=== PATIENT | female | born 1990 | race Caucasian/White ===

== ENCOUNTER → 2022-02-01 10:08 | Outpatient (CLI) | payer OTHER, SELFPAY ==
[2022-02-01 11:22] LABS: HCG,Quantitative 642 mIU/ml (0-5.42)
== END ==
PROVIDERS: Visit Provider Obstetrics & Gynecology
DX: N92.6 Irregular menstruation, unspecified (principal)
CPT/HCPCS: 36415; 84702

== ENCOUNTER → 2022-02-04 08:33 | Outpatient (CLI) | payer OTHER, SELFPAY ==
[2022-02-04 10:09] LABS: HCG,Quantitative 2385 mIU/ml (0-5.42)
== END ==
PROVIDERS: Visit Provider Obstetrics & Gynecology
DX: Z34.90 Encounter for supervision of normal pregnancy, unspecified, unspecified trimester (principal); N92.6 Irregular menstruation, unspecified
CPT/HCPCS: 36415; 84144; 84702

== ENCOUNTER → 2022-02-18 11:57 | Outpatient (CLI) | payer OTHER, SELFPAY ==
[2022-02-18 12:59] LABS: Basophils # 0.1 K/mm3 (0-0.2); Eosinophils # 0.1 K/mm3 (0.0-0.4); Eosinophils % 2.1 % (0.1-12.0); Hematocrit 41.5 % (37.0-47.0); Hemoglobin 13.1 g/dL (12.2-16.2); Lymphocytes % 28.8 % (10-50); Mean Corpuscular HGB Conc 31.5 g/dL (31.8-35.4); Mean Corpuscular Hemoglobin 31.1 pg (27.0-31.2); Mean Corpuscular Volume 98.9 fl (81-99); Mean Platelet Volume 8.4 fl (7.4-10.4); Monocytes # 0.4 K/mm3 (0.1-1.0); Monocytes % 5.7 % (1.7-9.3); Neutrophils # 4.3 K/mm3 (1.8-7.8); Neutrophils % 62.5 % (37.0-80.0); Platelet Count 198 K/mm3 (142-424); White Blood Count 6.8 K/mm3 (4.8-10.8)
[2022-02-19 09:19] LABS: Rubella Antibodies, IgG 7.16 index (Immune >0.99)
[2022-02-19 12:20] LABS: HIV Screen 4th Generation wRfx Non Reactive (Non Reactive); Rapid Plasma Reagin Ab Titer Non Reactive (NonRea<1:1)
[2022-02-19 14:10] LABS: Hepatitis B Surface Antigen Negative (Negative); Hepatitis C Antibody <0.1 s/co ratio (0.0-0.9)
[2022-02-20 23:35] LABS: Neisseria gonorrhoeae, NAA Negative (Negative)
== END ==
PROVIDERS: Visit Provider Obstetrics & Gynecology
DX: Z34.90 Encounter for supervision of normal pregnancy, unspecified, unspecified trimester (principal)
CPT/HCPCS: 36415; 85025; 86592; 86703; 86762; 86850; 87340; 87380; 87491; 87591; G0432

== ENCOUNTER 2022-02-21 07:39 | Emergency (ER) | payer OTHER, SELFPAY ==
[2022-02-21 08:02] VITALS: BP 129/80; PULSE 103; RESP 17; TEMP 36.8; O2SAT 99; BMI 26.8
[2022-02-21 08:21] LABS: Influenza A, PCR Not Detected (NotDetected); Influenza B, PCR Not Detected (NotDetected)
[2022-02-21 08:23] LABS: Microscopic, Urine URINE MICROSCOPIC (MICROSCOPIC)
[2022-02-21 08:25] LABS: Appearance,Urine CLEAR (Clear); Bilirubin,Urine Negative (Negative); Blood, Urine TRACE-I (Negative); Color,Urine YELLOW (Yellow); Glucose,Urine (UA) Negative (Negative); Ketones,Urine Negative (Negative); Leukocyte Esterase,Urine Negative (Negative); Nitrate,Urine Negative (Negative); PH,Urine 6.5 (5.0-8.5); Protein,Urine Negative (Negative); Urobilinogen,Urine 0.2 EU/dl (0.2)
[2022-02-21 08:28] VITALS: BP 119/67; PULSE 93; O2SAT 100
[2022-02-21 08:29] LABS: Urine Pregnancy, HCG Qual. Positive (Negative)
--- NOTE | 2022-02-21 08:29 | PC.NURSE ---
pt is lying on ED stretcher waiting to have an IV started and blood collected. She asked for a warm blanket, call light within reach.
[2022-02-21 08:30] VITALS: BP 139/83; PULSE 98; O2SAT 100
[2022-02-21 08:36] LABS: Bacteria,Urine Trace /lpf; Squamous Epithelial Cell,Urine Occasional #/hpf (0-5)
--- NOTE | 2022-02-21 08:39 | HMH.EDGENADL ---
Discharge Plan Disposition Patient Disposition: Home, Self-Care Condition: Good Chief Complaint: Vaginal Bleeding Prescriptions Prescriptions: No Action Flintstones Complete Tablet,Chewable 1 tab PO DAILY albuterol sulfate 90 mcg/actuation HFA aerosol inhaler 2 puff IH Q6H PRN Referrals Referrals: Provider,Referral, [Primary Care Provider] - Enter time for follow up Activity Restrictions/Add. Instructions Additional Instructions/Restrictions: You were evaluated in the emergency department today and diagnosed with COVID-19. You also having vaginal bleeding affecting early . We encourage oral hydration, pelvic rest, and Tylenol as needed for symptoms. Follow-up with your primary care provider. Return to the emergency department for any new or worsening symptoms. Clinical Impressions Clinical Impression: Vaginal bleeding affecting early , COVID-19 affecting in first trimester Instructions Patient Instructions: DI for Vaginal Bleeding During , DI for Vaginal Bleeding, DI for COVID-19 (Suspected or Confirmed ) Discharge ED Provider: Khadra Rizvi General Adult HPI General Chief complaint: Vaginal Bleeding Stated complaint: possible miscarrage,bleeding Time Seen by Provider: 02/21/22 08:00 Mode of Arrival: Ambulatory Source of Information: Patient Limitations: No Limitations Description of Symptoms (Recalled from ER Triage Doc. by RN): pt to ed c/o vaginal bleeding. pt states she is approx 8 weeks . pt states around midnight she started having pink tinged spotting and at 4 am she reports having bright red blood and passing a clot. pt states she has intermittenly been bleeding this morning. pt reports having a covid exposure x1 week ago and reports generalized body aches this morning. History of Present Illness HPI narrative: This patient is a 31-year-old female at estimated 8 weeks gestation with confirmed intrauterine via transvaginal ultrasound presented to the emergency department for evaluation of fever, body aches, sore throat, cough, and congestion that started yesterday. Patient states that she also had light spotting on the toilet paper last night and has continued to have light spotting this morning. She states that she wants a COVID test and is concerned that she may be having a miscarriage. She denies any chest pain, abdominal pain, vomiting, changes in bowel movements, dysuria, rashes, or swelling. She took Tylenol last night which seemed out of her symptoms, but she has not taken anything today. Related Data Home Medications Medication Instructions Recorded Confirmed albuterol sulfate 90 mcg/actuation 2 puff inhalation Q6H PRN 01/16/22 01/16/22 aerosol inhaler pediatric multivitamin no.76 1 tab PO DAILY 02/18/22 02/18/22 (Flintstones Complete) Allergies Allergy/AdvReac Type Severity Reaction Status Date / Time Latex, Natural Rubber Allergy Mild Verified 02/18/22 11:23 Opioids - Morphine Analogues Allergy Mild Verified 02/18/22 11:23 tramadol Allergy Mild Verified 02/18/22 11:23 PFSH PFSH Social History Smoking Status: Never smoker alcohol intake: never current occupational status: employed ROS Obtained: Yes All systems reviewed & no additional complaints except as documented 14 point review systems negative except otherwise mentioned in HPI Physical Exam General General appearance: alert and in no apparent distress Respiratory Respiratory exam: Present normal lung sounds bilaterally; Absent respiratory distress Cardiovascular Cardiovascular exam: Present regular rate and normal rhythm; Absent bradycardia or tachycardia Neurological Exam Neurological exam: Present alert and oriented X3 Medical Decision Making Sammy Inquiry Pt receiving controlled substance: No Vital Signs: 02/21/22 08:02 02/21/22 08:28 02/21/22 08:30 Temperature 98.2 F
--- NOTE | 2022-02-21 08:42 | US_ITS ---
FINAL REPORT CLINICAL HISTORY: vaginal bleeding-- early ob-- covid pos FINDINGS: Sonographic images of the pelvis were obtained. A single, living intrauterine is noted. The uterus is anteverted and anteflexed. A yolk sac is present and measures 5 mm which is normal. A pole is present. [place] to rump length measures 11.3 mm cm which corresponds to 7 weeks 2 days gestation. Heartbeat is identified and measures 163 beats per minute. There is a normal decidual reaction crescentic hypo echogenicity adjacent to the gestational sac. This is likely a small sub chorionic hemorrhage. The left ovary measures 2.6 x 3.6 by 2.1 cm and is normal. Color imaging to the left ovary is normal. The right ovary measures 3.3 x 1.9 x 2.1 cm and is normal. Color imaging to the right ovary is normal. IMPRESSION: Single, living, intrauterine gestation with 7 weeks 2 days ultrasound age. Reviewed, Interpreted and Dictated by Valentina Blount MD Transcribed by Luisa Morataya Authenticated and [facility]
--- NOTE | 2022-02-21 08:49 | PC.NURSE ---
pt to US with teradata developer via WC
--- NOTE | 2022-02-21 08:50 | PC.NURSE ---
per lab staff reports approx 5 minutes left until covid swab results
[2022-02-21 08:52] LABS: Coronavirus 19, PCR Detected (NotDetected)
--- NOTE | 2022-02-21 08:54 | PC.NURSE ---
Addendum entered by Mary Dang 02/21/22 08:57: pt is still in US at this time Original Note: pt returned from US via wheelchair
--- NOTE | 2022-02-21 09:02 | PC.NURSE ---
pt placed in a gown and OB bet set up at this time
[2022-02-21 09:13] LABS: Basophils # 0.1 K/mm3 (0-0.2); Basophils % 2.1 % (0.1-2.0); Eosinophils % 0.5 % (0.1-12.0); Hematocrit 39.1 % (37.0-47.0); Hemoglobin 12.9 g/dL (12.2-16.2); Lymphocytes # 0.3 K/mm3 (0.7-4.5); Mean Corpuscular HGB Conc 32.9 g/dL (31.8-35.4); Mean Corpuscular Hemoglobin 31.4 pg (27.0-31.2); Mean Corpuscular Volume 95.7 fl (81-99); Mean Platelet Volume 8.5 fl (7.4-10.4); Monocytes # 0.3 K/mm3 (0.1-1.0); Monocytes % 9.3 % (1.7-9.3); Neutrophils # 2.4 K/mm3 (1.8-7.8); Platelet Count 134 K/mm3 (142-424); Red Blood Count 4.09 M/mm3 (4.20-5.40); Red Cell Distribution Width 13.1 % (11.5-17.5)
[2022-02-21 09:18] LABS: Alanine Aminotransferase 25 U/L (12-78); Albumin/Globulin Ratio 1.5 (1.1-1.8); Alkaline Phosphatase 51 U/L (38-126); Anion Gap 10.5 mEq/L (5-15); Aspartate Amino Transferase 33 U/L (14-36); Blood Urea Nitrogen 9 mg/dl (7-17); Calcium 8.6 mg/dl (8.4-10.2); Carbon Dioxide 26 mmol/L (22.0-30.0); Chloride 100 mmol/L (98-107); Creatinine Clearance Estimated 137 mL/min (50-200); Estimated Glomerular Filt Rate 116 ml/min (>60); GFR (African American) 140 ML/MIN (>60); Globulin 2.7 g/dL (1.3-3.2); Glucose 78 mg/dl (74-100); Potassium 3.5 mmoL/L (3.5-5.1); Sodium 133 mmol/L (136-145); Total Protein,Serum 6.7 g/dl (6.3-8.2)
[2022-02-21 09:19] LABS: Bilirubin,Total < 0.1 mg/dl (0.2-1.3)
[2022-02-21 09:34] VITALS: BP 138/80; PULSE 94; RESP 17; TEMP 36.8; O2SAT 99
[2022-02-21 10:01] LABS: HCG,Quantitative 64297 mIU/ml (0-5.42)
== END 2022-02-21 09:47 | disposition home or self-care (01) ==
PROVIDERS: Emergency Provider Emergency Medicine
DX: O46.91 Antepartum hemorrhage, unspecified, first trimester; Z3A.08 8 weeks gestation of pregnancy; Z88.5 Allergy status to narcotic agent; Z88.6 Allergy status to analgesic agent; Z91.040 Latex allergy status; J45.909 Unspecified asthma, uncomplicated; F31.9 Bipolar disorder, unspecified
CPT/HCPCS: 76817; 80053; 81001; 81025; 84702; 85025; 86850; 96365; 99284; C9803; U0003; U0005

== ENCOUNTER → 2022-02-28 15:33 | Outpatient (CLI) | payer OTHER, SELFPAY ==
--- NOTE | 2022-02-28 15:36 | US_ITS ---
FINAL REPORT CLINICAL HISTORY: Recheck Heartbeat FINDINGS: Transvaginal sonographic images of the pelvis were obtained. A single intrauterine is noted with a gestational age of 7 weeks 6 days based on crown rump length of 15 mm. No heartbeat is identified consistent with demise. The right ovary measures up to 3.5 cm. The left ovary measures up to 3.8 cm. There is a small amount of free fluid. IMPRESSION: Findings consistent with demise. Reviewed, Interpreted and Dictated by Avel Jaimes III, MD Transcribed by Keo Maldonado Authenticated and . [facility]
== END ==
PROVIDERS: Visit Provider Obstetrics & Gynecology
DX: Z36.2 Encounter for other antenatal screening follow-up (principal); Z3A.08 8 weeks gestation of pregnancy
CPT/HCPCS: 76817

== ENCOUNTER → 2022-03-05 11:56 | Outpatient (CLI) | payer OTHER, SELFPAY ==
[2022-03-05 12:10] LABS: MANUAL DIFFERENTIAL MANUAL DIFFERENTIAL (MANUAL DIFF)
[2022-03-05 12:31] LABS: Basophils # 0.1 K/mm3 (0-0.2); Basophils % 0.9 % (0.1-2.0); Eosinophils # 0.1 K/mm3 (0.0-0.4); Eosinophils % 1.3 % (0.1-12.0); Hematocrit 39.2 % (37.0-47.0); Hemoglobin 12.8 g/dL (12.2-16.2); Lymphocytes # 1.8 K/mm3 (0.7-4.5); Lymphocytes % 26.6 % (10-50); Mean Corpuscular HGB Conc 32.6 g/dL (31.8-35.4); Mean Platelet Volume 8.1 fl (7.4-10.4); Monocytes # 0.4 K/mm3 (0.1-1.0); Monocytes % 6.2 % (1.7-9.3); Neutrophils # 4.4 K/mm3 (1.8-7.8); Platelet Count 243 K/mm3 (142-424); Red Blood Count 4.13 M/mm3 (4.20-5.40); Red Cell Distribution Width 12.9 % (11.5-17.5); White Blood Count 6.7 K/mm3 (4.8-10.8)
[2022-03-05 19:39] LABS: Lymphocytes % 32 % (10-50); Monocytes % 5 % (2-9); Neutrophils % 63 % (42-76); Platelet Estimate Normal; RBC Morphology Normal; Total Cells Counted 100
== END ==
PROVIDERS: Visit Provider Obstetrics & Gynecology
DX: O02.1 Missed abortion (principal)
CPT/HCPCS: 36415; 84702; 85007; 85014; 85018; 85048; 85049

== ENCOUNTER → 2022-03-12 11:00 | Outpatient (CLI) | payer OTHER, SELFPAY ==
[2022-03-12 14:00] LABS: HCG,Quantitative 30377 mIU/ml (0-5.42)
== END ==
PROVIDERS: Visit Provider Obstetrics & Gynecology
DX: O02.1 Missed abortion (principal)
CPT/HCPCS: 36415; 84702

== ENCOUNTER → 2022-03-14 18:37 | Outpatient (CLI) | payer OTHER, SELFPAY ==
[2022-03-14 19:02] LABS: Basophils # 0.1 K/mm3 (0-0.2); Basophils % 0.7 % (0.1-2.0); Eosinophils # 0.2 K/mm3 (0.0-0.4); Eosinophils % 2.1 % (0.1-12.0); Hematocrit 36.8 % (37.0-47.0); Hemoglobin 12.7 g/dL (12.2-16.2); Lymphocytes # 1.8 K/mm3 (0.7-4.5); Lymphocytes % 26.7 % (10-50); Mean Corpuscular HGB Conc 34.5 g/dL (31.8-35.4); Mean Corpuscular Hemoglobin 32.2 pg (27.0-31.2); Mean Corpuscular Volume 93.4 fl (81-99); Mean Platelet Volume 9.4 fl (7.4-10.4); Monocytes # 0.5 K/mm3 (0.1-1.0); Monocytes % 6.9 % (1.7-9.3); Neutrophils # 4.4 K/mm3 (1.8-7.8); Neutrophils % 63.5 % (37.0-80.0); Platelet Count 206 K/mm3 (142-424); Red Blood Count 3.94 M/mm3 (4.20-5.40); Red Cell Distribution Width 13.4 % (11.5-17.5); White Blood Count 6.9 K/mm3 (4.8-10.8)
[2022-03-14 19:20] LABS: Alanine Aminotransferase 15 U/L (12-78); Albumin/Globulin Ratio 1.5 (1.1-1.8); Alkaline Phosphatase 67 U/L (38-126); Anion Gap 12.6 mEq/L (5-15); Aspartate Amino Transferase 24 U/L (14-36); Bilirubin,Total < 0.1 mg/dl (0.2-1.3); Blood Urea Nitrogen 13 mg/dl (7-17); Calcium 8.3 mg/dl (8.4-10.2); Carbon Dioxide 27 mmol/L (22.0-30.0); Chloride 102 mmol/L (98-107); Estimated Glomerular Filt Rate 116 ml/min (>60); GFR (African American) 140 ML/MIN (>60); Globulin 2.7 g/dL (1.3-3.2); Glucose 103 mg/dl (74-100); Potassium 3.6 mmoL/L (3.5-5.1); Sodium 138 mmol/L (136-145); Total Protein,Serum 6.7 g/dl (6.3-8.2)
== END ==
PROVIDERS: Visit Provider Obstetrics & Gynecology
DX: O02.1 Missed abortion (principal); Z01.812 Encounter for preprocedural laboratory examination
CPT/HCPCS: 36415; 80053; 85025

== ENCOUNTER 2022-03-15 06:09 | Day surgery (SDC) | payer OTHER, SELFPAY ==
[2022-03-13 12:31] VITALS: BMI 26.5
[2022-03-15] VITALS (10 sets, daily range): BP systolic 108–140; BP diastolic 52–86; PULSE 71–102; RESP 16–24; TEMP 36.3–37.1; O2SAT 96–100
--- NOTE | 2022-03-15 07:42 | EXP.ANES.CKL ---
[facility] Medical History Asthma Bipolar 1 disorder History of recurrent miscarriages Missed Surgical History H/O tooth extraction History of D&C Family History (Updated 03/15/22 @ 06:37 by Harmony Mi, RN) Family/Other Hyperthyroidism Sister Hypothyroid Graves disease Mother Hypothyroid Mother Diabetes Son Family history of cancer Grandmother Family history of cancer Murmur, heart Social History (Updated 03/15/22 @ 06:40 by Harmony Mi, RN) Smoking Status: Current some day smoker tobacco type: cigarettes packs per day: 1 years smoked: 18 second hand exposure: No alcohol intake: never substance use type: marijuana current occupational status: unemployed Travel in the last 8 weeks: None [facility] Anesthesia Checklist Patient Identification Patient Identification: Arm Band Structural Data Admitted From: Home Planned Operative Procedure/s: D&C with [place] Suction Consent for Planned Operative Procedure(s) Verified: Yes Verified Documents: Surgical Consent and History and Physical NPO Status Verified Time NPO: 00:00 Additional verifications Anesthesia Reactions: No Hx Blood Transfusions: No Blood Transfusion Reaction: No Airway Assessment C-Spine Mobility Assessed: Yes TMJ Mobility Assessed: Yes Dentition: Good Dentition Neurological Assessment Level of Consciousness: Awake and Alert Anesthesia Plan Anesthesia Risk discussed: Yes Anesthesia Plan: Verified ASA Class: II Anesthesia Type: General
--- NOTE | 2022-03-15 08:22 | P.PNANES_ITS ---
[facility] Anesthesia Record Part I Anesthesia Record I Intake, IV Amount: 1,200 Estimated blood loss (mL): 300 Urine output (mL): 50 Blood Products used (#): none Blood Pressure: 110/67 SaO2: 96 Pulse Rate: 102 Respiratory Rate: 16 Temperature: 97.7 F Patient is:: Drowsy and Stable Stable to PACU at:: 08:15
--- NOTE | 2022-03-15 09:13 | PC.NURSE ---
0843-detailed report called to ADE Scales 0845-pt transported to post op via stretcher w/shaun rails up and left in care of ADE Scales with bed locked in lowest position ,vss, pt stable, pt's sister remains at bedside
--- NOTE | 2022-03-15 09:52 | EXP.ANES.II ---
[facility] Anesthesia Record Part II Anesthesia Record Part II Discharge Time: 08:45 Destination: Surgical Day Care (OP Surgery) PACU nurse assessment reviewed?: Yes Patient Condition:: Good Anesthesia Complications:: None Swallowing reflex intact?: Yes Cyanosis?: No Blood Pressure: 108/77 Pulse Rate: 80 Temperature: 97.4 F Mental Status: Alert & Oriented Pain level:: 0 Nausea and/or vomitting:: None Intake, IV Amount: 0
--- NOTE | 2022-03-26 10:49 | EXP.OP.NOTE ---
Date of procedure: 03/15/22 Pre-op Diagnosis:: 1. Missed 2. History of recurrent miscarriage 3. ABO RH: O positive Post-op Diagnosis:: 1. Missed 2. History of recurrent miscarriage 3. ABO RH: O positive Procedure performed:: 1. Missed 2. History of recurrent miscarriage 3. ABO RH: O positive Surgeon:: Mary Carmen Fowler DO Fieldwork Coordinator(s):: N/a FLOOR TILING PROFESSIONAL:: Nikunj Foster Anesthesia: GETA Estimated blood loss (mL): 300 Clinical Note:: Ms Loraine Mock is a 31 yo who presents with missed . She was see on 02/28 for routine ob visit at 8w4d and no heartbeat was seen on exam. She was sent to [facility] for follow-up ultrasound that confirmed miscarriage. She proceed with expectant management from 02/28/-03/04. She had some spotting and mild cramping but nothing else. She wanted to try medical management. She was given Cytotec. Beta hcg quant decreased from 75,596 to 30,377. She states she continues to have cramping but no bleeding. She would like to proceed with surgical intervention. Operative findings:: On bimanual exam, uterus anteverted and approximately 10 week size. No adnexal masses palpated. Operative note:: Risks, benefits and alternatives were discussed with the patient. Risks include but are not limited to bleeding, infection, uterine perforation and VTE. Patient voiced understanding and agreed to proceed. She was wheeled back to the operating room and placed under general anesthesia without difficulty. She was placed in dorsal lithotomy position and prepped and draped in the normal sterile fashion. Straight catheter was used to drain the bladder. A bimanual exam was performed. A weighted Auvard was placed in the vaginal vault. Single tooth tenaculum was placed on anterior lip of the cervix. Uterus sounded to 12. Sequential Kapil dilators were used to dilate the cervical os. An 8 mm curved frisian suction curettage was advanced into the uterine cavity without difficulty and was used to suction contents of the uterus. Following removal of the products of conception, a medium sized sharp curette was advanced into the uterine cavity and was used to scrape the uterine solis until a gritty texture was noted. At this time, the suction curette was advanced one more time to suction any remaining products of conception and blood. Instruments were removed from the vagina. Tenaculum site was noted to be hemostatic. Patient was awaken from anesthesia without difficulty. Products of conception will be sent to pathology as well as to an outside lab for chromosomal analysis. She was transported to recovery room in stable condition. Patient will be discharged home when awake and ambulating. She was given a prescription for Doxycycline 200 mg PO x 1 dose and postop instructions. She was also given instructions to follow-up in the office in 2 weeks. Condition: stable Disposition: same day Specimens:: 1. Products of conception Complications:: None
== END 2022-03-15 09:20 | disposition home or self-care (01) ==
PROVIDERS: Visit Provider Obstetrics & Gynecology
PROC: (CPT 59820; principal; 2022-03-15 07:30)
DX: O02.1 Missed abortion (principal); N96 Recurrent pregnancy loss; Z67.40 Type O blood, Rh positive; Z3A.10 10 weeks gestation of pregnancy; Z72.0 Tobacco use
CPT/HCPCS: 59820; J2405

== ENCOUNTER 2022-03-24 22:51 | Emergency (ER) | payer OTHER, SELFPAY ==
[2022-03-24 22:52] VITALS: BP 119/69; PULSE 83; RESP 16; TEMP 36.9; O2SAT 100; BMI 25.6
--- NOTE | 2022-03-24 23:12 | XR_ITS ---
PROCEDURE INFORMATION: Exam: XR Right Foot Exam date and time: 03/24/2022 11:09 PM Age: 31 years old Clinical indication: Pain; Foot; Right; Additional info: Pain without explanation TECHNIQUE: Imaging protocol: Radiologic exam of the Right foot. Views: 3 or more views. COMPARISON: No relevant prior studies available. FINDINGS: Bones/joints: No acute fracture. 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 No dislocation. Soft tissues: Unremarkable. IMPRESSION: No fracture. If pain persists, consider nonemergent MRI for further evaluation.
--- NOTE | 2022-03-24 23:40 | PC.NURSE ---
updated on pt's triage, radiology pending
[2022-03-25] VITALS: BP 103/59; PULSE 85; O2SAT 98
--- NOTE | 2022-03-25 | PC.NURSE ---
Addendum entered by Marilu Peraza RN 03/25/22 00:47: Note entered on the wrong patient. Original Note: Rounded on patient. Patient is still c/o of bladder spasms that are severe in nature.
--- NOTE | 2022-03-25 00:13 | HMH.EDEXTP ---
Discharge Plan Disposition Patient Disposition: Home, Self-Care Chief Complaint: Extremity Problem,Nontraumatic Prescriptions Prescriptions: No Action No Known Home Medications Referrals Follow up/Referrals: Provider,Referral, MD [Primary Care Provider] - See instructions Clinical Impressions Clinical Impression: Foot pain, right Instructions Patient Instructions: DI for Foot Pain Discharge ED Provider: Francisco Del Rio Extremity Problem HPI General Chief complaint: Extremity Problem,Nontraumatic Stated complaint: surg. 03/18 swelling Time Seen by Provider: 03/25/22 00:15 Mode of Arrival: Ambulatory Source of Information: Patient Limitations: No Limitations Description of Symptoms (Recalled from ER Triage Doc. by RN): PT WITH CONTUSION ON TOP OF RIGHT FOOT. PT STATES SHE HAD A D&C 9 DAYS AGO AND WOULD LIKE TO MAKE SURE IT IS NOT A BLOOD CLOT. PT DENIES INJURY BUT STATES SHE WAS SITTIG ON HER FEET ON A HARDWOOD FLOOR. ALL PULSES PRESENT. History of Present Illness HPI Narrative: acute pain to dorsum of rt foot after sitting on foot tonight but had recent surg MD Complaint: extremity pain Onset (ago): hour(s) Location: right and lower extremity Exacerbating factors: palpation Context: recent surgery/procedure Related Data Home Medications Medication Instructions Recorded Confirmed No Known Home Medications 03/24/22 03/24/22 Allergies Allergy/AdvReac Type Severity Reaction Status Date / Time Latex, Natural Rubber Allergy Mild Verified 03/15/22 06:29 tramadol Allergy Mild Vomiting Verified 03/15/22 06:29 amoxicillin Allergy Diarrhea Verified 03/15/22 06:30 bacitracin Allergy RASH/REDNES Verified 03/15/22 06:29 [From Triple Antibiotic] S morphine Allergy respiratory Verified 03/15/22 06:29 distress neomycin Allergy RASH/REDNES Verified 03/15/22 06:29 [From Triple Antibiotic] S polymyxin B Allergy RASH/REDNES Verified 03/15/22 06:29 [From Triple Antibiotic] S PFSH PFSH Medical History Asthma Bipolar 1 disorder History of recurrent miscarriages Missed Surgical History H/O tooth extraction History of D&C Family History (Updated 03/15/22 @ 06:37 by Harmony Mi RN) Graves disease Sister Diabetes Mother Family history of cancer Son Grandmother Murmur, heart Grandmother Hyperthyroidism Family/Other Hypothyroid Sister Mother Social History (Updated 03/15/22 @ 07:43 by Nikunj Foster CRNA) Smoking Status: Never smoker years smoked: 18 second hand exposure: No alcohol intake: never substance use type: marijuana current occupational status: unemployed Travel in the last 8 weeks: None ROS Obtained: Yes All systems reviewed & no additional complaints except as documented Physical Exam General General appearance: alert Head Head exam: normocephalic Eye Eye exam: Present PERRL and EOMI ENT ENT exam: Present mucous membranes moist Neck Neck exam: Present trachea midline Respiratory Respiratory exam: Absent respiratory distress Cardiovascular Cardiovascular exam: Present regular rate Expanded Lower Extremity Exam Right: Foot/toe exam: Present tenderness and swelling; Absent full ROM Neurovascular/Tendon exam: Absent pulse deficit Neurological Exam Neurological exam: Present alert and CN II-XII intact Skin Skin exam: Present intact Medical Decision Making Medical Records Medical records reviewed: Yes I reviewed the patient's medical records. Sammy Inquiry Pt receiving controlled substance: No Vital Signs: 03/24/22 22:52 03/25/22 00:00 Temperature 98.5 F Temperature Source Oral Pulse Rate 85 Pulse Rate [Left Radial] 83 Respiratory Rate 16 Blood Pressure 103/59 L Blood Pressure [Right Arm] 119/69 Blood Pressure Mean 75 Blood Pressure Mean [Right Ar
--- NOTE | 2022-03-25 00:30 | PC.NURSE ---
PT UPDATED. PT AWARE THAT HER RADIOLOGY REPORTS ARE BACK. WAITING ON MD TO REVIEW FOR DECISION. NO COMPLAINTS VOICED. NO ACUTE DISTRESS NOTED.
[2022-03-25 00:44] VITALS: BP 107/65; PULSE 75; RESP 17; TEMP 36.6; O2SAT 99
--- NOTE | 2022-03-25 00:46 | PC.NURSE ---
OUTPATIENT ORDER FOR VENOUS DOPPLER GIVEN TO PATIENT.
--- NOTE | 2022-03-25 00:49 | PC.NURSE ---
Respiratory notified of order form for outpatient order venous doppler. Patient advised that she will be called tomorrow with instructions on coming to the hospital for those tests. Verbalized understanding. Patient gave phone number of [phone]
== END 2022-03-25 01:00 | disposition home or self-care (01) ==
PROVIDERS: Emergency Provider Emergency Medicine
DX: M79.671 Pain in right foot (principal); R00.2 Palpitations; Z88.5 Allergy status to narcotic agent; Z88.6 Allergy status to analgesic agent; Z88.1 Allergy status to other antibiotic agents; Z91.040 Latex allergy status; J45.909 Unspecified asthma, uncomplicated; F31.9 Bipolar disorder, unspecified
CPT/HCPCS: 73630; 99283

== ENCOUNTER → 2022-03-25 10:24 | Outpatient (CLI) | payer OTHER, SELFPAY ==
--- NOTE | 2022-03-25 | CA_ITS ---
FINAL REPORT TECHNIQUE: Compression mo scale and Doppler evaluation CLINICAL HISTORY: .s/p (wk miscarridge post DNC-<1 week ago, bruised rt foot FINDINGS: Femoral and popliteal veins show normal compressibility and flow. Visualized portion of the calf veins are patent by Doppler exam. IMPRESSION: No evidence of right lower extremity deep venous thrombosis Reviewed, Interpreted and Dictated by Guadalupe Kaye MD Transcribed by Luisa Morataya Authenticated and . [facility]
== END ==
PROVIDERS: Visit Provider Emergency Medicine
DX: M79.671 Pain in right foot (principal); M79.89 Other specified soft tissue disorders
CPT/HCPCS: 93971

== ENCOUNTER → 2022-04-10 11:54 | Outpatient (CLI) | payer OTHER, SELFPAY ==
[2022-04-10 12:28] LABS: Basophils # 0.1 K/mm3 (0-0.2); Basophils % 0.4 % (0.1-2.0); Eosinophils # 0.2 K/mm3 (0.0-0.4); Eosinophils % 2.2 % (0.1-12.0); Hemoglobin 12.6 g/dL (12.2-16.2); Lymphocytes # 2.2 K/mm3 (0.7-4.5); Lymphocytes % 21.2 % (10-50); Mean Corpuscular HGB Conc 30.9 g/dL (31.8-35.4); Mean Corpuscular Hemoglobin 29.9 pg (27.0-31.2); Mean Corpuscular Volume 96.8 fl (81-99); Mean Platelet Volume 7.5 fl (7.4-10.4); Monocytes # 0.5 K/mm3 (0.1-1.0); Neutrophils # 7.2 K/mm3 (1.8-7.8); Neutrophils % 71.2 % (37.0-80.0); Platelet Count 195 K/mm3 (142-424); Red Blood Count 4.23 M/mm3 (4.20-5.40); Red Cell Distribution Width 13.3 % (11.5-17.5); White Blood Count 10.2 K/mm3 (4.8-10.8)
[2022-04-10 13:04] LABS: Hemoglobin A1C 4.8 % (4.0-6.0)
[2022-04-10 13:11] LABS: Alanine Aminotransferase 26 U/L (12-78); Albumin Level 3.9 g/dl (3.5-5.0); Albumin/Globulin Ratio 1.6 (1.1-1.8); Alkaline Phosphatase 66 U/L (38-126); Anion Gap 13.2 mEq/L (5-15); Aspartate Amino Transferase 33 U/L (14-36); Bilirubin,Total 0.2 mg/dl (0.2-1.3); Blood Urea Nitrogen 14 mg/dl (7-17); Calcium 8.7 mg/dl (8.4-10.2); Carbon Dioxide 24 mmol/L (22.0-30.0); Chloride 104 mmol/L (98-107); Estimated Glomerular Filt Rate 116 ml/min (>60); GFR (African American) 140 ML/MIN (>60); Globulin 2.5 g/dL (1.3-3.2); Glucose 107 mg/dl (74-100); Potassium 4.2 mmoL/L (3.5-5.1); Sodium 137 mmol/L (136-145); Total Protein,Serum 6.4 g/dl (6.3-8.2)
[2022-04-10 13:28] LABS: T4 (Thyroxine) 5.5 ug/dl (5.53-11.0)
[2022-04-10 13:29] LABS: HCG,Quantitative 4 mIU/ml (0-5.42)
[2022-04-10 13:42] LABS: Thyroid Stimulating Hormone 0.94 uIU/mL (0.465-4.68)
[2022-04-11 08:15] LABS: Progesterone 10.1 ng/mL (.)
== END ==
PROVIDERS: PCP Nurse Practitioner Family; Visit Provider Obstetrics & Gynecology
DX: N92.6 Irregular menstruation, unspecified (principal)
CPT/HCPCS: 36415; 80053; 83036; 84144; 84436; 84443; 84702; 85025

== ENCOUNTER → 2022-04-12 08:49 | Outpatient (CLI) | payer OTHER, SELFPAY ==
[2022-04-12 10:07] LABS: Chol/HDL Ratio 3.2 (1-3.5); Cholesterol 205 mg/dl (140-200); HDL Cholesterol 65 mg/dl (40-60); Triglycerides 82 mg/dl (30-150); VLDL Cholesterol 16 mg/dL (0-40)
[2022-04-12 10:19] LABS: Direct LDL Cholesterol 106.65 mg/dL (100-129)
[2022-04-12 10:23] LABS: HCG,Quantitative 3 mIU/ml (0-5.42)
== END ==
PROVIDERS: Obstetrics & Gynecology; PCP Nurse Practitioner Family; Visit Provider Nurse Practitioner Family
DX: N92.6 Irregular menstruation, unspecified (principal)
CPT/HCPCS: 36415; 80061; 84702

== ENCOUNTER → 2022-04-19 08:05 | Outpatient (CLI) | payer OTHER, SELFPAY ==
[2022-04-19 10:57] LABS: HCG,Quantitative 3 mIU/ml (0-5.42)
== END ==
PROVIDERS: PCP Emergency Medicine; Visit Provider Obstetrics & Gynecology
DX: O02.1 Missed abortion (principal)
CPT/HCPCS: 36415; 84702

== ENCOUNTER → 2022-05-03 15:00 | Outpatient (CLI) | payer OTHER, SELFPAY ==
[2022-05-03 16:21] LABS: HCG,Quantitative 1029 mIU/ml (0-5.42)
== END ==
PROVIDERS: PCP Emergency Medicine; Visit Provider Obstetrics & Gynecology
DX: N92.6 Irregular menstruation, unspecified (principal)
CPT/HCPCS: 36415; 84702

== ENCOUNTER → 2022-05-06 14:56 | Outpatient (CLI) | payer OTHER, SELFPAY ==
[2022-05-06 17:54] LABS: HCG,Quantitative 1511 mIU/ml (0-5.42)
[2022-05-08 10:00] LABS: Progesterone 5.2 ng/mL (.)
== END ==
PROVIDERS: PCP Emergency Medicine; Visit Provider Obstetrics & Gynecology
DX: N92.6 Irregular menstruation, unspecified (principal)
CPT/HCPCS: 36415; 84144; 84702

== ENCOUNTER → 2022-05-08 11:43 | Outpatient (CLI) | payer OTHER, SELFPAY ==
[2022-05-08 12:14] LABS: Basophils # 0.1 K/mm3 (0-0.2); Basophils % 1.5 % (0.1-2.0); Eosinophils # 0.3 K/mm3 (0.0-0.4); Eosinophils % 3.3 % (0.1-12.0); Hematocrit 44.2 % (37.0-47.0); Lymphocytes # 2.1 K/mm3 (0.7-4.5); Lymphocytes % 22.9 % (10-50); Mean Corpuscular HGB Conc 31.6 g/dL (31.8-35.4); Mean Corpuscular Hemoglobin 30.9 pg (27.0-31.2); Mean Corpuscular Volume 97.7 fl (81-99); Mean Platelet Volume 7.9 fl (7.4-10.4); Monocytes # 0.5 K/mm3 (0.1-1.0); Monocytes % 5.7 % (1.7-9.3); Neutrophils # 6.1 K/mm3 (1.8-7.8); Neutrophils % 66.6 % (37.0-80.0); Platelet Count 206 K/mm3 (142-424); Red Blood Count 4.52 M/mm3 (4.20-5.40); Red Cell Distribution Width 13.7 % (11.5-17.5); White Blood Count 9.2 K/mm3 (4.8-10.8)
[2022-05-08 14:02] LABS: HCG,Quantitative 1431 mIU/ml (0-5.42)
== END ==
PROVIDERS: PCP Emergency Medicine; Visit Provider Obstetrics & Gynecology
DX: Z34.90 Encounter for supervision of normal pregnancy, unspecified, unspecified trimester (principal); O20.9 Hemorrhage in early pregnancy, unspecified
CPT/HCPCS: 36415; 84702; 85025

== ENCOUNTER 2022-05-09 19:15 | Emergency (ER) | payer OTHER, SELFPAY ==
[2022-05-09 19:29] VITALS: BP 142/96; PULSE 109; RESP 17; TEMP 37.6; O2SAT 99; BMI 27.4
[2022-05-09 19:42] LABS: Basophils # 0.1 K/mm3 (0-0.2); Basophils % 1.1 % (0.1-2.0); Eosinophils # 0.2 K/mm3 (0.0-0.4); Eosinophils % 2.4 % (0.1-12.0); Hematocrit 41.3 % (37.0-47.0); Hemoglobin 13.1 g/dL (12.2-16.2); Lymphocytes # 2.1 K/mm3 (0.7-4.5); Lymphocytes % 21.8 % (10-50); Mean Corpuscular HGB Conc 31.7 g/dL (31.8-35.4); Mean Corpuscular Hemoglobin 30.8 pg (27.0-31.2); Mean Corpuscular Volume 97.1 fl (81-99); Mean Platelet Volume 7.9 fl (7.4-10.4); Monocytes # 0.5 K/mm3 (0.1-1.0); Monocytes % 4.6 % (1.7-9.3); Neutrophils # 6.9 K/mm3 (1.8-7.8); Neutrophils % 70.1 % (37.0-80.0); Platelet Count 196 K/mm3 (142-424); Red Blood Count 4.26 M/mm3 (4.20-5.40); Red Cell Distribution Width 13.8 % (11.5-17.5); White Blood Count 9.8 K/mm3 (4.8-10.8)
[2022-05-09 19:49] LABS: Alanine Aminotransferase 20 U/L (12-78); Albumin Level 4.4 g/dl (3.5-5.0); Albumin/Globulin Ratio 1.7 (1.1-1.8); Alkaline Phosphatase 56 U/L (38-126); Anion Gap 12.8 mEq/L (5-15); Aspartate Amino Transferase 31 U/L (14-36); Bilirubin,Total 0.2 mg/dl (0.2-1.3); Blood Urea Nitrogen 16 mg/dl (7-17); Calcium 9.4 mg/dl (8.4-10.2); Carbon Dioxide 29 mmol/L (22.0-30.0); Chloride 100 mmol/L (98-107); Creatinine Clearance Estimated 87 mL/min (50-200); Estimated Glomerular Filt Rate 64 ml/min (>60); GFR (African American) 78 ML/MIN (>60); Globulin 2.6 g/dL (1.3-3.2); Glucose 108 mg/dl (74-100); Potassium 3.8 mmoL/L (3.5-5.1); Sodium 138 mmol/L (136-145)
[2022-05-09 20:15] LABS: HCG,Quantitative 1006 mIU/ml (0-5.42)
[2022-05-09 21:13] LABS: Microscopic, Urine URINE MICROSCOPIC (MICROSCOPIC)
--- NOTE | 2022-05-09 21:20 | HMH.EDUROGF ---
Discharge Plan Disposition Patient Disposition: Home, Self-Care Chief Complaint: Vaginal Bleeding Prescriptions Prescriptions: No Action levonorgestrel-ethinyl estrad [Aviane] 0.1-20 mg-mcg tablet 1 tab PO DAILY Qty: 84 3RF Nicotrol 10 mg cartridge 1 inh inhalation BID PRN (Reason: nicotine cravings) Qty: 168 0RF Latuda 20 mg tablet 20 mg PO DAILY Rx Instructions: must administer with food (at least 350 calories) fluoxetine 10 mg capsule 10 mg PO DAILY albuterol sulfate 90 mcg/actuation HFA aerosol inhaler 2 puff inhalation Q6H PRN (Reason: shortness of breath or wheezing) Qty: 8.5 1RF methylprednisolone 4 mg tablets,dose pack See Rx Instructions PO PER PKG DIR Qty: 21 0RF Rx Instructions: PO PER PKG DIR clonazepam [Klonopin] 0.5 mg tablet 0.5 mg PO BID Qty: 60 1RF Referrals Follow up/Referrals: Francisco Del Rio MD [Primary Care Provider] - See instructions Mary Carmen Fowler DO [Staff Physician] - See instructions Clinical Impressions Clinical Impression: Vaginal bleeding affecting early Instructions Patient Instructions: DI for Vaginal Bleeding Discharge ED Provider: Francisco Del Rio Female Urogenital HPI General Chief complaint: Vaginal Bleeding Stated complaint: 4 wKS pREG mISCARRIAGE Time Seen by Provider: 05/09/22 21:21 Mode of Arrival: Ambulatory Source of Information: Patient Limitations: No Limitations Description of Symptoms (Recalled from ER Triage Doc. by RN): 31 yo female presents A3 with current she feels to be spontaneously aborting. Patient states she has had 8 total pregnancies, 4 previous miscarriages, and has had a d&c as recent 2 months ago[address] Patient [address] Dr Bean is her OB, and her recent hcg levels showed her to be approx 4 weeks with a marked decreasing in the levels, in addition to bleeding for 6 days. Patient describes the bleeding as episodic with moderate to copious amounts of bright red blood in tandem with her muscle cramping/contractions in her low stomach. She also says she is worried she might have an infection. Presenting for pain complaints and bleeding irregularity History of Present Illness HPI Narrative: this pt with recent miscarriage and had surg procedure and then thinks had preg in mar and has bleeding assoc with that preg - MD Complaint: vaginal bleeding Onset (ago): day(s) Severity: moderate : Yes Associated symptoms: denies other symptoms Related Data Home Medications Medication Instructions Recorded Confirmed fluoxetine 10 mg capsule 10 mg PO DAILY 04/15/22 04/23/22 lurasidone 20 mg tablet (Latuda) 20 mg PO DAILY 04/15/22 04/23/22 Previous Rx's Medication Instructions Recorded levonorgestrel-ethinyl estradiol 1 tab PO DAILY #84 tabs 03/26/22 0.1 mg-20 mcg tablet (Aviane) nicotine 10 mg inhalation 1 inh inhalation BID PRN nicotine 03/26/22 cartridge (Nicotrol) cravings #168 ea albuterol sulfate 90 mcg/actuation 2 puff inhalation Q6H PRN 04/15/22 aerosol inhaler shortness of breath or wheezing #8.5 grams clonazepam 0.5 mg tablet (Klonopin) 0.5 mg PO BID #60 tabs 04/16/22 methylprednisolone 4 mg tablets in See Rx Instructions PO PER PKG DIR 04/23/22 a dose pack #21 tabs Allergies Allergy/AdvReac Type Severity Reaction Status Date / Time Latex, Natural Rubber Allergy Mild Verified 04/23/22 10:51 tramadol Allergy Mild Vomiting Verified 04/23/22 10:51 amoxicillin Allergy Diarrhea Verified 04/23/22 10:51 bacitracin Allergy RASH/REDNES Verified 04/23/22 10:51 [From Triple Antibiotic] S morphine Allergy respiratory Verified 04/23/22 10:51 distress neomycin Allergy RASH/REDNES Verified 04/23/22 10:51 [From Triple Antibiotic] S polymyxin B Allergy RASH/REDNES Verified 04/23/22 10:51 [From Triple Antibiotic] [facility] Medical History Asthma Bipolar 1 disorder History of recurrent
[2022-05-09 21:30] LABS: Appearance,Urine CLEAR (Clear); Bilirubin,Urine Negative (Negative); Blood, Urine 3+ (Negative); Color,Urine YELLOW (Yellow); Glucose,Urine (UA) Negative (Negative); Ketones,Urine Negative (Negative); Leukocyte Esterase,Urine Negative (Negative); Nitrate,Urine Negative (Negative); PH,Urine 6.5 (5.0-8.5); Protein,Urine Negative (Negative); Urobilinogen,Urine 0.2 EU/dl (0.2)
[2022-05-09 21:34] LABS: Urine Pregnancy, HCG Qual. Positive (Negative)
[2022-05-09 21:40] LABS: Bacteria,Urine Trace /lpf; WBC,Urine Occasional #/hpf (0-3)
--- NOTE | 2022-05-09 21:44 | US_ITS ---
PROCEDURE INFORMATION: Exam: US , Transvaginal Exam date and time: 05/09/2022 10:38 PM Age: 31 years old Clinical indication: Lmp or gestational age (in weeks): 04/17/2022; Other: Vaginal bleeding RO miscarriage; ; Prior surgery; Surgery date: <1 month; Surgery type: D and c 03/26/2022; Additional info: Vag bleed beta hcg 1006 recent miscarriage in February and d and c done 03/26 LABS AND CLINICAL REPORTS: Serum Choriogonadotropin (HCG): 1006 mIU/mL TECHNIQUE: Imaging protocol: Real-time transvaginal obstetrical ultrasound of the maternal pelvis with image documentation. Transvaginal imaging was used for better evaluation of the fetus, adnexa, and/or cervix. COMPARISON: US OB TRANSVAGINAL 02/28/2022 3:43 PM FINDINGS: Gestation: No intrauterine or ectopic is identified. MATERNAL: Uterus: The uterus measures 3.8 x 5.6 cm. The echo pattern myometrium is normal. The endometrial cavity demonstrates the presence of fluid and irregular soft tissue measuring up to 15 mm in thickness. There is no intrauterine gestational sac identified. Right ovary/adnexa: The right ovary measures 27 x 21 x 20 mm in the left ovary measures 36 x 27 x 27 mm. The echo pattern of the ovaries is normal. Normal ovarian blood flow is demonstrated bilaterally. Intraperitoneal space: Small amount of free fluid is present within the cul-de-sac. IMPRESSION: There is no intrauterine or ectopic identified. The endometrial cavity is thickened and contains fluid and debris. A small amount of free pelvic fluid is present.
--- NOTE | 2022-05-09 21:46 | PC.NURSE ---
called radiology to request on-call u/s tech
--- NOTE | 2022-05-09 22:27 | PC.NURSE ---
called to touch base with rad re: US.
[2022-05-09 22:33] VITALS: BP 140/65; PULSE 102; RESP 18; TEMP 36.6; O2SAT 99
== END 2022-05-09 23:27 | disposition home or self-care (01) ==
PROVIDERS: Emergency Provider Emergency Medicine; PCP Emergency Medicine
DX: O20.0 Threatened abortion (principal); O99.331 Smoking (tobacco) complicating pregnancy, first trimester; O99.511 Diseases of the respiratory system complicating pregnancy, first trimester; O99.340 Other mental disorders complicating pregnancy, unspecified trimester; O20.9 Hemorrhage in early pregnancy, unspecified; Z79.52 Long term (current) use of systemic steroids; Z79.899 Other long term (current) drug therapy; Z88.0 Allergy status to penicillin; Z88.1 Allergy status to other antibiotic agents; Z88.3 Allergy status to other anti-infective agents; Z88.5 Allergy status to narcotic agent; Z88.8 Allergy status to other drugs, medicaments and biological substances; Z91.040 Latex allergy status; Z82.49 Family history of ischemic heart disease and other diseases of the circulatory system; Z83.3 Family history of diabetes mellitus; Z83.49 Family history of other endocrine, nutritional and metabolic diseases; Z80.9 Family history of malignant neoplasm, unspecified; Z3A.01 Less than 8 weeks gestation of pregnancy
CPT/HCPCS: 76817; 80053; 81001; 81025; 84702; 85025; 96360; 99284

== ENCOUNTER → 2022-05-14 07:36 | Outpatient (CLI) | payer OTHER, SELFPAY ==
[2022-05-14 08:20] LABS: HCG,Quantitative 592 mIU/ml (0-5.42)
== END ==
PROVIDERS: PCP Emergency Medicine; Visit Provider Obstetrics & Gynecology
DX: O02.1 Missed abortion (principal)
CPT/HCPCS: 36415; 84702

== ENCOUNTER → 2022-05-27 09:56 | Outpatient (CLI) | payer OTHER, SELFPAY ==
[2022-05-27 11:41] LABS: HCG,Quantitative 6 mIU/ml (0-5.42)
== END ==
PROVIDERS: PCP Emergency Medicine; Visit Provider Obstetrics & Gynecology
DX: O03.9 Complete or unspecified spontaneous abortion without complication (principal)
CPT/HCPCS: 36415; 84702

== ENCOUNTER → 2022-06-03 08:18 | Outpatient (CLI) | payer OTHER, SELFPAY ==
[2022-06-03 09:50] LABS: HCG,Quantitative < 2 mIU/ml (0-5.42)
== END ==
PROVIDERS: PCP Emergency Medicine; Visit Provider Obstetrics & Gynecology
DX: O03.9 Complete or unspecified spontaneous abortion without complication (principal)
CPT/HCPCS: 36415; 84702

== ENCOUNTER → 2022-07-23 07:33 | Outpatient (CLI) | payer OTHER, SELFPAY ==
[2022-07-23 08:05] VITALS: PULSE 74; PULSE 75
== END ==
PROVIDERS: PCP Nurse Practitioner Family; Visit Provider Nurse Practitioner Family
DX: R06.02 Shortness of breath (principal)
CPT/HCPCS: 94060; 94618; 94640

== ENCOUNTER 2022-11-12 10:31 | Emergency (ER) | payer OTHER, SELFPAY ==
[2022-11-12 10:52] VITALS: BP 121/77; PULSE 77; RESP 16; TEMP 36.9; O2SAT 96; BMI 28.3
--- NOTE | 2022-11-12 11:04 | EXP.UTC ---
Discharge Plan Disposition Patient Disposition: Home, Self-Care Condition: Good Prescriptions Prescriptions: New amoxicillin [amoxicillin] 875 mg tablet 875 mg PO Q12H Qty: 20 0RF ciprofloxacin HCl 0.3 % drops See Rx Instructions .ROUTE .COMPLEX Qty: 5 0RF Rx Instructions: put 1 drp in both eyes every 2hr x2days; then 4 times/day x5days methylprednisolone 4 mg Tablets,Dose Pack 4 mg PO DIRECTED Qty: 21 0RF [id number] [Bromfed DM] 2-30-10 mg/5 mL Syrup 5 ml PO Q6H PRN (Reason: Cough) Qty: 240 0RF No Action fluticasone propion-salmeterol [Advair Diskus] 250-50 mcg/dose blister with device 1 inh inhalation BID 90 Days Qty: 180 3RF albuterol sulfate 90 mcg/actuation HFA aerosol inhaler 2 inh inhalation Q6H PRN (Reason: shortness of breath or wheezing) 90 Days Qty: 8.5 3RF albuterol sulfate 1.25 mg/3 mL solution for nebulization 1.25 mg inhalation Q6H PRN (Reason: shortness of breath or wheezing) Qty: 270 0RF medroxyprogesterone [Depo-Provera] 150 mg/mL suspension 150 mg IM [id number] Qty: 1 3RF fluoxetine 20 mg capsule 60 mg PO DAILY lurasidone [Latuda] 120 mg tablet 120 mg PO DAILY lurasidone [Latuda] 60 mg tablet 60 mg PO DAILY azithromycin [Zithromax] 250 mg tablet See Rx Instructions PO .COMPLEX Qty: 6 0RF Rx Instructions: For 250 mg dose pack: take 500 mg today (day 1), then 250 mg for 4 days (days 2-5) PO loratadine [Claritin] 10 mg tablet 10 mg PO DAILY PRN (Reason: allergic symptoms) Qty: 30 2RF clonazepam [Klonopin] 0.5 mg tablet 0.5 mg PO BID Qty: 60 1RF Referrals Follow up/Referrals: Kyler Lucia APRN [Primary Care Provider] - See instructions Activity Restrictions/Add. Instructions Additional Instructions/Restrictions: Drink plenty of fluids. Take tylenol or ibuprofen for pain or fever. Take the medications as directed. Follow up with your regular doctor. GO TO THE ER FOR ANY WORSENING SYMPTOMS Throw your tooth brush away and get a new one. Quarantine until you know the results of your covid-19 test. Notify your school or workplace of your results and follow their instructions regarding return to work/school. Clinical Impressions Clinical Impression: Left otitis media, Sinusitis Instructions Patient Instructions: How to Instill Eye Drops, DI for Sinusitis Discharge ED Provider: Eric Plaza [facility] [place] HPI General Stated complaint: sinus pressure, VORA, congestion Mode of Arrival: Ambulatory Source of Information: Patient Limitations: No Limitations Time Seen by Provider: 11/12/22 11:04 Description of Symptoms (Recalled from Triage Doc. by RN): pt states she had a sinus infection 3wks ago. she was given a z pack. pt is still having congestion and drainage. HEENT Symptoms (Recalled from RN notes): Yes Resp Symptoms (Recalled from RN notes): No Skin Symptoms (Recalled from RN notes): No MS Symptoms (Recalled from RN notes): No Functional Status (Recalled from RN notes): wnl History of Present Illness Provider Complaint: She states that for the past 1 month she has had sinus congestion, bilateral ear pain, and malaise. Related Data Home Medications Medication Instructions Recorded Confirmed fluoxetine 20 mg capsule 60 mg PO DAILY 10/01/22 10/01/22 lurasidone 120 mg tablet (Latuda) 120 mg PO DAILY 10/01/22 10/01/22 lurasidone 60 mg tablet (Latuda) 60 mg PO DAILY 10/01/22 10/01/22 Previous Rx's Medication Instructions Recorded clonazepam 0.5 mg tablet (Klonopin) 0.5 mg PO BID #60 tabs 04/16/22 albuterol sulfate 1.25 mg/3 mL 1.25 mg (3 mL) inhalation Q6H PRN 08/05/22 solution for nebulization shortness of breath or wheezing #270 mL albuterol sulfate 90 mcg/actuation 2 inh inhalation Q6H PRN shortness 08/05/22 aerosol inhaler of breath or wheezing 90 days #8.5 grams fluticasone 250 mcg-salmeterol 50 1 inh inhalation BID 90 days #180 08/05/22 mcg/dose blistr p
[2022-11-12 11:18] VITALS: BP 121/77; PULSE 77; RESP 16; TEMP 36.9
== END 2022-11-12 11:20 | disposition home or self-care (01) ==
PROVIDERS: Emergency Provider Nurse Practitioner Family; PCP Nurse Practitioner Family
DX: J01.90 Acute sinusitis, unspecified (principal); H66.92 Otitis media, unspecified, left ear; J03.90 Acute tonsillitis, unspecified; F17.210 Nicotine dependence, cigarettes, uncomplicated; J45.909 Unspecified asthma, uncomplicated
CPT/HCPCS: 99204; 99212; G0463

== ENCOUNTER 2023-02-13 19:16 | Emergency (ER) | payer OTHER, SELFPAY ==
[2023-02-13 19:17] VITALS: BP 145/83; PULSE 89; RESP 20; TEMP 36.8; O2SAT 96; BMI 28.3
--- NOTE | 2023-02-13 19:34 | EXP.UTC ---
Discharge Plan Disposition Patient Disposition: Home, Self-Care Condition: Good Prescriptions Prescriptions: New mupirocin 2 % ointment 1 applic topical TID 7 Days Qty: 15 0RF amoxicillin-pot clavulanate 875-125 mg Tablet 1 tab PO Q12H Qty: 20 0RF No Action fluticasone propion-salmeterol [Advair Diskus] 250-50 mcg/dose blister with device 1 inh inhalation BID 90 Days Qty: 180 3RF albuterol sulfate 90 mcg/actuation HFA aerosol inhaler 2 inh inhalation Q6H PRN (Reason: shortness of breath or wheezing) 90 Days Qty: 8.5 3RF albuterol sulfate 1.25 mg/3 mL solution for nebulization 1.25 mg inhalation Q6H PRN (Reason: shortness of breath or wheezing) Qty: 270 0RF medroxyprogesterone [Depo-Provera] 150 mg/mL suspension 150 mg IM [id number] Qty: 1 3RF fluoxetine 20 mg capsule 60 mg PO DAILY lurasidone [Latuda] 120 mg tablet 120 mg PO DAILY lurasidone [Latuda] 60 mg tablet 60 mg PO DAILY azithromycin [Zithromax] 250 mg tablet See Rx Instructions PO .COMPLEX Qty: 6 0RF Rx Instructions: For 250 mg dose pack: take 500 mg today (day 1), then 250 mg for 4 days (days 2-5) PO loratadine [Claritin] 10 mg tablet 10 mg PO DAILY PRN (Reason: allergic symptoms) Qty: 30 2RF clonazepam [Klonopin] 0.5 mg tablet 0.5 mg PO BID Qty: 60 1RF amoxicillin [amoxicillin] 875 mg tablet 875 mg PO Q12H Qty: 20 0RF ciprofloxacin HCl 0.3 % drops See Rx Instructions .ROUTE .COMPLEX Qty: 5 0RF Rx Instructions: put 1 drp in both eyes every 2hr x2days; then 4 times/day x5days methylprednisolone 4 mg Tablets,Dose Pack 4 mg PO DIRECTED Qty: 21 0RF [id number] [Bromfed DM] 2-30-10 mg/5 mL Syrup 5 ml PO Q6H PRN (Reason: Cough) Qty: 240 0RF Referrals Follow up/Referrals: Klaber,Kyler, MEDIA ASSOCIATE [Primary Care Provider] - See instructions Activity Restrictions/Add. Instructions Additional Instructions/Restrictions: Drink plenty of fluids. Take tylenol or ibuprofen for pain or fever. Take the medications as directed. Follow up with your regular doctor. GO TO THE ER FOR ANY WORSENING SYMPTOMS Clinical Impressions Clinical Impression: Abrasion of hand, right, Near syncope Stand Alone Forms Stand Alone Forms: Work/School Release Instructions Patient Instructions: Fainting Discharge ED Provider: Eric Plaza [facility] General Stated complaint: AO08/17 , feels faint Mode of Arrival: Ambulatory Source of Information: Patient Limitations: No Limitations Time Seen by Provider: 02/13/23 19:34 HEENT Symptoms (Recalled from RN notes): No Resp Symptoms (Recalled from RN notes): No Skin Symptoms (Recalled from RN notes): Yes MS Symptoms (Recalled from RN notes): Yes Functional Status (Recalled from RN notes): wnl History of Present Illness Provider Complaint: Patient reports feeling like she is going to pass out for 5-6 days. Also reports abrasion to her right hand. Related Data Home Medications Medication Instructions Recorded Confirmed fluoxetine 20 mg capsule 60 mg PO DAILY 10/01/22 12/03/22 lurasidone 120 mg tablet (Latuda) 120 mg PO DAILY 10/01/22 12/03/22 lurasidone 60 mg tablet (Latuda) 60 mg PO DAILY 10/01/22 12/03/22 Previous Rx's Medication Instructions Recorded clonazepam 0.5 mg tablet (Klonopin) 0.5 mg PO BID #60 tabs 04/16/22 albuterol sulfate 1.25 mg/3 mL 1.25 mg (3 mL) inhalation Q6H PRN 08/05/22 solution for nebulization shortness of breath or wheezing #270 mL albuterol sulfate 90 mcg/actuation 2 inh inhalation Q6H PRN shortness 08/05/22 aerosol inhaler of breath or wheezing 90 days #8.5 grams fluticasone 250 mcg-salmeterol 50 1 inh inhalation BID 90 days #180 08/05/22 mcg/dose blistr powdr for ea inhalation (Advair Diskus) medroxyprogesterone 150 mg/mL 150 mg IM [id number] #1 mL 09/11/22 intramuscular suspension (Depo-Provera) azithromycin 250 mg tablet See Rx Instructions PO .COMPLEX #6
[2023-02-13 20:09] VITALS: BP 145/83; PULSE 89; RESP 20; TEMP 36.8; O2SAT 96
== END 2023-02-13 20:10 | disposition home or self-care (01) ==
PROVIDERS: Emergency Provider Nurse Practitioner Family; PCP Nurse Practitioner Family
DX: S60.511A Abrasion of right hand, initial encounter (principal); R55 Syncope and collapse; F17.210 Nicotine dependence, cigarettes, uncomplicated; J45.909 Unspecified asthma, uncomplicated; F31.9 Bipolar disorder, unspecified; W19.XXXA Unspecified fall, initial encounter
CPT/HCPCS: 99212; 99214; G0463

== ENCOUNTER 2023-07-09 08:00 | Emergency (ER) | payer OTHER, SELFPAY ==
[2023-07-09 08:13] VITALS: BP 131/81; PULSE 90; RESP 18; TEMP 36.8; O2SAT 98; BMI 25.7
--- NOTE | 2023-07-09 08:35 | ED_ITS ---
Discharge Plan Disposition Patient Disposition: Home, Self-Care Condition: Good Prescriptions Prescriptions: New erythromycin 5 mg/gram (0.5 %) ointment 0.5 inch ophthalmic (eye) QID 7 Days Qty: 7 0RF Rx Instructions: apply to left eye as directed No Action albuterol sulfate 90 mcg/actuation HFA aerosol inhaler 2 inh inhalation Q6H PRN (Reason: shortness of breath or wheezing) 90 Days Qty: 8.5 3RF albuterol sulfate 1.25 mg/3 mL solution for nebulization 1.25 mg inhalation Q6H PRN (Reason: shortness of breath or wheezing) Qty: 270 0RF medroxyprogesterone [Depo-Provera] 150 mg/mL suspension 150 mg IM [id number] Qty: 1 3RF propranolol 10 mg tablet 10 mg PO BID PRN (Reason: .) fluoxetine 20 mg capsule 20 mg PO DAILY Vraylar 1.5 mg capsule 1.5 mg PO DAILY Qty: 30 2RF Referrals Follow up/Referrals: Kyler Lucia APRN [Primary Care Provider] - See instructions Activity Restrictions/Add. Instructions Additional Instructions/Restrictions: Use medication as directed in left eye Follow up with your Eye Doctor if no improvement or any worsening of symptoms Straight to ER if any life threatening symptoms Clinical Impressions Clinical Impression: Abrasion, corneal Qualifiers: Encounter type: initial encounter Laterality: left Qualified Code(s): S05.02XA - Injury of conjunctiva and corneal abrasion without foreign body, left eye, initial encounter Stand Alone Forms Stand Alone Forms: Work/School Release Instructions Patient Instructions: Erythromycin Ophthalmic, DI for Corneal Abrasion Discharge ED Provider: Debra Jacome [facility] General Stated complaint: pain in left eye Mode of Arrival: Ambulatory Source of Information: Patient Limitations: No Limitations Time Seen by Provider: 07/09/23 08:15 Description of Symptoms (Recalled from Triage Doc. by RN): Pt stated that she scratched her left eye while trying to get an eyelash out. HEENT Symptoms (Recalled from RN notes): Yes Resp Symptoms (Recalled from RN notes): No Skin Symptoms (Recalled from RN notes): No MS Symptoms (Recalled from RN notes): No Functional Status (Recalled from RN notes): n/a History of Present Illness Provider Complaint: Patient states that she was getting an eyelash out of her left eye a couple days ago when she felt herself scratch her eye States that she thought it would get better but it hasnt States that it has been burning and watering when she is in the light Related Data Home Medications Medication Instructions Recorded Confirmed propranolol 10 mg tablet 10 mg PO BID PRN . 03/11/23 07/09/23 fluoxetine 20 mg capsule 20 mg PO DAILY 05/14/23 07/09/23 Previous Rx's Medication Instructions Recorded albuterol sulfate 1.25 mg/3 mL 1.25 mg (3 mL) inhalation Q6H PRN 08/05/22 solution for nebulization shortness of breath or wheezing #270 mL albuterol sulfate 90 mcg/actuation 2 inh inhalation Q6H PRN shortness 08/05/22 aerosol inhaler of breath or wheezing 90 days #8.5 grams medroxyprogesterone 150 mg/mL 150 mg IM [id number] #1 mL 09/11/22 intramuscular suspension (Depo-Provera) cariprazine 1.5 mg capsule 1.5 mg PO DAILY #30 caps 05/09/23 (Vraylar) erythromycin 5 mg/gram (0.5 %) eye 0.5 inch ophthalmic (eye) QID 7 07/09/23 ointment days #7 grams Allergies Allergy/AdvReac Type Severity Reaction Status Date / Time Latex, Natural Rubber Allergy Mild Verified 07/09/23 08:27 tramadol Allergy Mild Vomiting Verified 07/09/23 08:27 amoxicillin Allergy Diarrhea Verified 07/09/23 08:27 bacitracin Allergy RASH/REDNES Verified 07/09/23 08:27 [From Triple Antibiotic] S morphine Allergy respiratory Verified 07/09/23 08:27 distress neomycin Allergy RASH/REDNES Verified 07/09/23 08:27 [From Triple Antibiotic] S polymyxin B Allergy RASH/REDNES Verified 07/09/23 08:27 [From Triple Antibiotic] S Worker's Comp Is this a Worker's Comp case?: No [facility] Disclaimer: The information contained in this section may have been updated after the patient was seen, as this information can be updated by other users. Medical History Asthma Bipolar 1 disorder Dyspnea on exertion Eczema History of recurrent miscarriages Miscarriage Surgical History H/O tooth extraction History of D&C Family History Family/Other Hyperthyroidism Sister Hypothyroid Graves disease Mother Hypothyroid Mother Diabetes Son Family history of cancer Grandmother Family history of cancer Murmur, heart Social History Smoking Status: Current every day smoker tobacco type: cigarettes packs per day: 1 years smoked: 18 second hand exposure: No alcohol intake: never substance use type: marijuana current occupational status: unemployed Travel in the last 8 weeks: None ROS Obtained: Yes All systems reviewed & no additional complaints except as documented and Yes Systems reviewed as appropriate & no additional complaints except as documented Constitutional Constitutional: Reports system reviewed and no additional complaints, except as documented and Reports as per HPI Eyes Eyes: Reports system reviewed and no additional complaints, except as documented, Reports as per HPI, Reports eye discharge (clear watery), Reports irritation and Reports other (feels like she scratched her left eye getting a eyelash out of eye) ENT Ears, Nose, Mouth, and Throat: Reports system reviewed and no additional complaints, except as documented and Reports as per HPI Cardiovascular Cardiovascular: Reports system reviewed and no additional complaints, except as documented and Reports as per HPI Respiratory Respiratory: Reports system reviewed and no additional complaints, except as documented and Reports as per HPI Gastrointestinal Gastrointestingal: Reports system reviewed and no additional complaints, except as documented and as per HPI Musculoskeletal Musculoskeletal: Reports system reviewed and no additional complaints, except as documented and Reports as per HPI Physical Exam General General appearance: alert and in no apparent distress Eye Eye exam: Present discharge (clear watery drainage noted) and other (sensitivity to light); Absent conjunctival redness, conjunctival injection, periorbital swelling or periorbital tenderness ENT ENT exam: Present mucous membranes moist Respiratory Respiratory exam: Present normal lung sounds bilaterally; Absent respiratory distress or wheezes Cardiovascular Cardiovascular exam: Present regular rate, normal rhythm and normal heart sounds Abdominal Exam Abdominal exam: Present soft and normal bowel sounds; Absent distention or tenderness Neurological Exam Neurological exam: Present alert, oriented X3 and normal gait Medical Decision Making Sammy Inquiry Pt receiving controlled substance: No Sammy was queried for this patient: No Vital Signs: 07/09/23 08:13 Temperature 98.3 F Temperature Source Oral Pulse Rate [Right Radial] 90 Respiratory Rate 18 Blood Pressure [Right Arm] 131/81 Blood Pressure Mean [Right Arm] 97 Blood Pressure Source [Right Arm] Automatic Cuff Blood Pressure Position [Right Arm] Sitting 02 Sat by Pulse Oximetry 98 Oxygen Delivery Method Room Air Medical Decision Narrative: Eye exam performed with méndez lamp, small scratch noted Procedures Eye Exam/FB Removal Location: eye (L) Topical anesthetic used: tetracaine Fluorescein Stick(s) used: Yes Time Out performed: Yes Procedure performed under: other (méndez lamp) Foreign body: other (none) Evidence of corneal penetration: No Technique: other (small scratch noted from fingernail) Eye irrigated w/saline (#ccs): 60 Patient tolerated procedure: well and no complications
[2023-07-09] MEDS: EYE WASH IRRIGATION SOLN 118ML BOTTLE 118 ML OP (08:44)
[2023-07-09] MEDS: TETRACAINE 0.5% OPTH SOL 15ML OP (08:45)
[2023-07-09] MEDS: ERYTHROMYCIN BASE 1 GM OINT...G. OP (08:45)
[2023-07-09 08:54] VITALS: BP 131/81; PULSE 90; RESP 18; TEMP 36.8; O2SAT 98
== END 2023-07-09 08:54 | disposition home or self-care (01) ==
PROVIDERS: Emergency Provider Nurse Practitioner; PCP Nurse Practitioner Family
DX: S05.02XA Injury of conjunctiva and corneal abrasion without foreign body, left eye, initial encounter (principal); F17.210 Nicotine dependence, cigarettes, uncomplicated; W26.8XXA Contact with other sharp object(s), not elsewhere classified, initial encounter
CPT/HCPCS: 99212; 99214; G0463

== ENCOUNTER 2023-10-17 09:45 | Outpatient (CLI) | payer OTHER, SELFPAY ==
[2023-10-17 10:07] LABS: Basophils # 0.1 K/mm3 (0-0.2); Basophils % 0.7 % (0.1-2.0); Eosinophils # 0.1 K/mm3 (0.0-0.4); Eosinophils % 1.6 % (0.1-12.0); Hematocrit 44.4 % (37.0-47.0); Hemoglobin 14.6 g/dL (12.2-16.2); Lymphocytes # 1.9 K/mm3 (0.7-4.5); Lymphocytes % 25.4 % (10-50); Mean Corpuscular HGB Conc 32.9 g/dL (31.8-35.4); Mean Corpuscular Hemoglobin 32.1 pg (27.0-31.2); Mean Corpuscular Volume 97.6 fl (81-99); Mean Platelet Volume 8.2 fl (7.4-10.4); Monocytes # 0.4 K/mm3 (0.1-1.0); Monocytes % 4.8 % (1.7-9.3); Neutrophils # 5.2 K/mm3 (1.8-7.8); Neutrophils % 67.6 % (37.0-80.0); Platelet Count 192 K/mm3 (142-424); Red Blood Count 4.55 M/mm3 (4.20-5.40); Red Cell Distribution Width 13.1 % (11.5-17.5); White Blood Count 7.6 K/mm3 (4.8-10.8)
[2023-10-17 11:26] LABS: Alanine Aminotransferase 17 U/L (12-78); Albumin Level 4.3 g/dl (3.5-5.0); Albumin/Globulin Ratio 1.9 (1.1-1.8); Alkaline Phosphatase 59 U/L (38-126); Anion Gap 10.2 mEq/L (5-15); Aspartate Amino Transferase 22 U/L (14-36); Bilirubin,Total 0.4 mg/dl (0.2-1.3); Blood Urea Nitrogen 13 mg/dl (7-17); Calcium 9.3 mg/dl (8.4-10.2); Carbon Dioxide 28 mmol/L (22.0-30.0); Chloride 108 mmol/L (98-107); Estimated Glomerular Filt Rate 82 ml/min (>60); GFR (African American) 99 ML/MIN (>60); Globulin 2.3 g/dL (1.3-3.2); Glucose 67 mg/dl (74-100); Potassium 4.2 mmoL/L (3.5-5.1); Sodium 142 mmol/L (136-145); Total Protein,Serum 6.6 g/dl (6.3-8.2)
[2023-10-17 12:05] LABS: HCG,Quantitative < 2 mIU/ml (0-5.42)
== END 2023-10-17 23:59 | disposition home or self-care (01) ==
LOC: LAB 09:46
PROVIDERS: PCP Nurse Practitioner Family; Visit Provider Obstetrics & Gynecology
DX: Z30.09 Encounter for other general counseling and advice on contraception (principal)
CPT/HCPCS: 36415; 80053; 84702; 85025

== ENCOUNTER 2023-10-23 07:12 | Day surgery (SDC) | payer OTHER, SELFPAY ==
[2023-10-20 13:53] VITALS: BMI 28.3
[2023-10-23] VITALS (10 sets, daily range): BP systolic 108–157; BP diastolic 66–103; PULSE 70–86; RESP 16–18; TEMP 35.9–36.2; O2SAT 95–100
[2023-10-23] MEDS: LACTATED RINGERS 1000ML 1,000 ML 25 ML IV (07:45)
[2023-10-23] MEDS: ACETAMINOPHEN 500MG TAB 1000 MG PO (08:00)
--- NOTE | 2023-10-23 08:02 | EXP.ANES.CKL ---
[facility] Disclaimer: The information contained in this section may have been updated after the patient was seen, as this information can be updated by other users. Medical History Anxiety and depression History of COVID-19 History of gastroesophageal reflux (GERD) Request for sterilization Eczema Dyspnea on exertion Asthma Miscarriage History of recurrent miscarriages Bipolar 1 disorder Surgical History H/O oral surgery H/O tooth extraction History of D&C Family History Family/Other Hyperthyroidism Sister Hypothyroid Graves disease Mother Hypothyroid Mother Diabetes Son Family history of cancer Grandmother Family history of cancer Murmur, heart Social History Smoking Status: Current every day smoker tobacco type: cigarettes packs per day: 1 years smoked: 18 second hand exposure: No alcohol intake: never substance use type: marijuana current occupational status: employed Travel in the last 8 weeks: None [facility] Anesthesia Checklist Patient Identification Patient Identification: Arm Band Structural Data Admitted From: Home Planned Operative Procedure/s: Laparoscopic Bilateral Salpingectomy Consent for Planned Operative Procedure(s) Verified: Yes Verified Documents: Surgical Consent and History and Physical NPO Status Verified Time NPO: 00:00 Additional verifications Anesthesia Reactions: No Hx Blood Transfusions: No Blood Transfusion Reaction: No Airway Assessment Mallampati Score:: Class II C-Spine Mobility Assessed: Yes TMJ Mobility Assessed: Yes Dentition: Good Dentition Neurological Assessment Level of Consciousness: Awake and Alert Anesthesia Plan Anesthesia Risk discussed: Yes Anesthesia Plan: Verified ASA Class: II Anesthesia Type: General
[2023-10-23] MEDS: BUPIVACAINE 0.5% 10ML VIAL 100 MG (09:56)
--- NOTE | 2023-10-23 10:26 | P.OP_ITS ---
Date of procedure: 10/23/23 Pre-op Diagnosis:: 1. Complete family status, desires permanent sterilization Post-op Diagnosis:: 1. Complete family status, desires permanent sterilization Procedure performed:: Laparoscopy, bilateral salpingectomy Surgeon:: Mary Carmen Fowler DO Joint Special Operations(s):: N/a USER EXPERIENCE DESIGNER:: Leslee South Anesthesia: GETA Estimated blood loss (mL): 2 Clinical Note:: Ms Loraine Mock is a 33 yo [id number] who presents to [facility] for scheduled procedure. She is complete with childbearing and desires permanent sterilization. History of x 4. Operative findings:: 1. On bimanual exam, uterus is normal size and shape, midposition. No adnexal masses palpated 2. On laparoscopic exam, grossly normal appearing liver, stomach and bowel. Grossly normal appearing uterus, bilateral fallopian tubes and ovaries Operative note:: Risks, benefits and alternatives were discussed with the patient. Risks include but are not limited to bleeding, infection, damage to adjacent structures and VTE. Patient voiced understanding and agreed to proceed with surgery. She was wheeled back to the operating room and placed under general anesthesia without difficulty. She was placed in the dorsal lithotomy position and prepped and draped in normal sterile fashion. Straight catheter was used to drain the bladder. A bimanual exam was performed. A weighted Auvard was placed in the vaginal vault. A single tooth tenaculum was placed on the anterior lip of the cervix. Lyons Switch manipulator was inserted into the cervical canal and attached to the tenaculum. Weighted Auvard was removed from the vagina. Attention was then drawn to the abdomen. A 1.5 cm infraumbilical incision was made. Veress needle was tested and inserted intraabdominally without difficulty. Opening pressure of 6 mm Hg. Abdomen was then insulflated to 15 mm Hg. Trocar was inserted through infraumbilical incision and laparoscope was inserted. Abdomen was viewed in its entirety. See findings above. Pictures were taken. Left lower quadrant was transilluminated. 5 mm incision was made and 5 mm disposable blunt trocar was inserted into the abdomen under direct laparoscopic visualization. Trocar was removed and sleeve was left in place. Right lower quadrant was transilluminated. A 5 mm incision was made and a 5 mm disposable trocar was inserted into the abdomen under direct laparoscopic visualization. Obturator was removed and sleeve was left in place. Fimbriated end of right fallopian tube was grasped. Ligasure was used to transect the right mesosalpinx and fallopian tube at uterine cornua, leaving right ovary in situ. Same procedure was carried out on the contralateral side. Bilateral fallopian tubes will be sent to pathology for review. Hemostasis was noted. Left lower quadrant trocar was removed under direct laparoscopic visualization. Right lower quadrant trocar was removed under direct laparoscopic visualization. Pneumoperitoneum was released into the atmosphere. Infraumbilical trocar was removed under direct laparoscopic visualization to ensure no herniation of bowel or omentum. Skin incisions were closed with 3-0 Vicryl. Dermabond was applied over closed skin incisions. All instruments were removed from the vagina. Tenaculum site was noted to be hemostatic. Patient was cleaned and placed into the dorsal supine position. She awoke from anesthesia without difficulty. She was transported to the recovery room in stable condition. She was given instructions for discharge and to follow-up in the office in 2 weeks at which time pathology will be reviewed. Condition: stable Disposition: same day Specimens:: 1. Bilateral fallopian tubes Complications:: None
--- NOTE | 2023-10-23 10:28 | EXP.ANES.I ---
[facility] Anesthesia Record Part I Anesthesia Record I Intake, IV Amount: 900 Hydration: Adequate Estimated blood loss (mL): 10 Urine output (mL): 20 Blood Products used (#): none Blood Pressure: 157/88 SaO2: 97 Pulse Rate: 83 Airway Patency: Patent Respiratory Rate: 16 Temperature: 96.6 F Patient is:: Awake (Talking) and Stable Stable to PACU at:: 10:28
[2023-10-23] MEDS: HYDROMORPHONE 2MG/ML SYRINGE 0.5 MG IV (10:45)
--- NOTE | 2023-10-23 12:27 | EXP.ANES.II ---
[facility] Anesthesia Record Part II Anesthesia Record Part II Discharge Time: 10:48 Destination: Surgical Day Care (OP Surgery) PACU nurse assessment reviewed?: Yes Patient Condition:: Good Anesthesia Complications:: None Swallowing reflex intact?: Yes Airway Patency: Patent Cyanosis?: No Blood Pressure: 108/87 SaO2: 95 Respiratory Rate: 18 Pulse Rate: 83 Temperature: 96.6 F Mental Status: Alert & Oriented Pain level:: 4 Nausea and/or vomitting:: None Intake, IV Amount: 900 Hydration: Adequate
== END 2023-10-23 11:05 | disposition home or self-care (01) ==
PROVIDERS: PCP Nurse Practitioner Family; Visit Provider Obstetrics & Gynecology
PROC: (CPT 58661; principal; 2023-10-23 09:00)
DX: Z30.2 Encounter for sterilization (principal)
CPT/HCPCS: 58661; J3490; J2405

== ENCOUNTER 2023-12-23 09:20 | Outpatient (CLI) | payer OTHER, SELFPAY ==
[2023-12-23 11:42] LABS: Thyroid Stimulating Hormone 1.51 uIU/mL (0.465-4.68)
[2023-12-24 13:04] LABS: Prolactin 16.3 ng/mL (4.8-33.4)
== END 2023-12-23 23:59 | disposition home or self-care (01) ==
LOC: LAB 09:23
PROVIDERS: PCP Nurse Practitioner Family; Visit Provider Obstetrics & Gynecology
DX: N91.1 Secondary amenorrhea (principal); N64.52 Nipple discharge
CPT/HCPCS: 36415; 84146; 84443

== ENCOUNTER 2024-01-27 07:59 | Outpatient (CLI) | payer OTHER, SELFPAY ==
[2024-01-28 08:48] LABS: Estradiol 41.3 pg/mL (.); FSH 5.2 mIU/mL (.); Progesterone 0.2 ng/mL (.)
== END 2024-01-27 23:59 | disposition home or self-care (01) ==
LOC: LAB 08:00
PROVIDERS: PCP Nurse Practitioner Family; Visit Provider Obstetrics & Gynecology
DX: F33.1 Major depressive disorder, recurrent, moderate (principal)
CPT/HCPCS: 36415; 82670; 83001; 84144

== ENCOUNTER 2024-06-28 15:20 | Emergency (ER) | payer OTHER, SELFPAY ==
[2024-06-28 16:10] VITALS: BP 111/71; PULSE 89; RESP 19; TEMP 36.9; O2SAT 99; BMI 29.8
[2024-06-28 16:32] LABS: UTC Strep Screen (Rapid) Negative (Negative)
--- NOTE | 2024-06-28 16:35 | EXP.UTC ---
Discharge Plan Disposition Patient Disposition: Home, Self-Care Condition: Good Prescriptions Prescriptions: New azithromycin [Zithromax Z-Yonathan] 250 mg tablet See Rx Instructions .ROUTE .COMPLEX 5 Days Qty: 6 0RF Rx Instructions: For 250 mg dose pack: take 500 mg today (day 1), then 250 mg for 4 days (days 2-5) methylprednisolone [Medrol (Yonathan)] 4 mg tablets,dose pack See Rx Instructions .Route .COMPLEX 6 Days Qty: 21 0RF Rx Instructions: taper pack; No Action propranolol 10 mg tablet 20 mg PO DAILY Vraylar 6 mg capsule 6 mg PO DAILY Referrals Follow up/Referrals: Kyler Lucia APRN [Primary Care Provider] - See instructions Activity Restrictions/Add. Instructions Additional Instructions/Restrictions: Start antibiotic today. Be sure to complete entire prescription even if feeling better Monitor temp. Tylenol every 4 hours as needed and / or ibuprofen every 6 hours as needed ( As long as your primary care physician has told you that it ok to take both. For fever/aches/pains ER if no less than 101 despite Tylenol or Motrin Humidifier/vaporizer or hot steamy shower *Start steroid today. Helps with inflammation therefore, cough and wheezing. Follow directions on the package. Reviewed side effects. Patient reports taking them before. Follow up IMMEDIATELY for new or worsening of symptoms OR no noticeable improvement over the next 48-72 hours. 911 immediately for any life threatening symptoms such as chest pain or difficulty breathing Clinical Impressions Clinical Impression: Sinusitis Instructions Patient Instructions: DI for Sinusitis, Sinusitis Print Language Print Language: Bulgarian Discharge ED Provider: Debra Jacome [facility] [place] HPI General Stated complaint: flu exp-sore throat, [place], painful breathing Mode of Arrival: Ambulatory Source of Information: Patient Limitations: No Limitations Time Seen by Provider: 06/28/24 16:35 Description of Symptoms (Recalled from Triage Doc. by RN): PATIENT C/O SORE THROAT, CHEST HURTING WITH COUGH, AND CONGESTION FOR APPROX 1 WEEK HEENT Symptoms (Recalled from RN notes): Yes Resp Symptoms (Recalled from RN notes): Yes Skin Symptoms (Recalled from RN notes): No MS Symptoms (Recalled from RN notes): No Functional Status (Recalled from RN notes): WNL History of Present Illness Provider Complaint: Patient states that she has been having sinus congestion and drainage in the back of throat into her chest area, states that her throat is raw and irritated and now she can barely talk States that she isnt coughing anything up just feels sore raw and irritated Related Data Home Medications ?Medication ?Instructions ?Recorded ?Confirmed propranolol 10 mg tablet 20 mg PO DAILY 10/17/23 06/28/24 cariprazine 6 mg capsule (Vraylar) 6 mg PO DAILY 12/23/23 06/28/24 Previous Rx's ?Medication ?Instructions ?Recorded azithromycin 250 mg tablet See Rx Instructions PO .COMPLEX 5 06/28/24 (Zithromax Z-Yonathan) days #6 tabs methylprednisolone 4 mg tablets in See Rx Instructions .Route 06/28/24 a dose pack (Medrol (Yonathan)) .COMPLEX 6 days #21 tabs Allergies Allergy/AdvReac Type Severity Reaction Status Date / Time Latex, Natural Rubber Allergy Mild Verified 12/30/23 09:21 tramadol Allergy Mild Vomiting Verified 12/30/23 09:21 amoxicillin Allergy Diarrhea Verified 12/30/23 09:21 bacitracin (From Triple Allergy RASH/REDNES Verified 12/30/23 09:21 Antibiotic) S morphine Allergy respiratory Verified 12/30/23 09:21 distress neomycin (From Triple Allergy RASH/REDNES Verified 12/30/23 09:21 Antibiotic) S polymyxin B (From Triple Allergy RASH/REDNES Verified 12/30/23 09:21 Antibiotic) S Worker's Comp Is this a Worker's Comp case?: No [facility] Disclaimer: The information contained in this section may have been updated after the patient was seen, as this information can be updated by other users. Medical History Nipple discharge milky white that seems to be cyclic. She thinks it occurs around ovulation but she hasn't had a period so she doesn't know Anxiety and depression History of COVID-19 History of gastroesophageal reflux (GERD) Request for sterilization Eczema Dyspnea on exertion Asthma Miscarriage History of recurrent miscarriages Bipolar 1 disorder Surgical History H/O laparoscopy H/O bilateral salpingectomy H/O oral surgery H/O tooth extraction History of D&C Family History Family/Other Hyperthyroidism Sister Hypothyroid Graves disease Mother Hypothyroid Mother Diabetes Son Family history of cancer Grandmother Family history of cancer Murmur, heart Social History Smoking Status: Current every day smoker tobacco type: cigarettes packs per day: 1 years smoked: 17 second hand exposure: No alcohol intake: never substance use type: marijuana current occupational status: employed Travel in the last 8 weeks: None Have you lived/traveled outside [place] in past 30 days?: No Contact w/someone who lives/traveled outside US past 30 days?: No Exposure to someone with infectious disease in past 14 days?: Yes Do you have a fever (greater than 100.4 F or 38 C)?: No Have you tested positive for COVID-19: No Exposed to someone with COVID-19 in past 14 days?: No Do you have a sore throat?: Yes Do you have a cough?: Yes Do you have any weakness?: Yes Do you have any diarrhea?: No Are you experiencing any unusual bleeding?: No Do you have any muscle aches/pain?: No Do you have any abdominal pain?: No Are you experiencing loss of taste or smell?: No ROS Obtained: Yes All systems reviewed & no additional complaints except as documented and Yes Systems reviewed as appropriate & no additional complaints except as documented Constitutional Constitutional: Reports system reviewed and no additional complaints, except as documented and Reports as per HPI ENT Ears, Nose, Mouth, and Throat: Reports system reviewed and no additional complaints, except as documented, Reports as per HPI, Reports sinus pain, Reports sinus pressure and Reports sore throat Cardiovascular Cardiovascular: Reports system reviewed and no additional complaints, except as documented and Reports as per HPI Respiratory Respiratory: Reports system reviewed and no additional complaints, except as documented, Reports as per HPI, Reports chest congestion and Reports cough Gastrointestinal Gastrointestingal: Reports system reviewed and no additional complaints, except as documented and as per HPI Physical Exam General General appearance: alert and in no apparent distress ENT ENT exam: Present mucous membranes moist Expanded ENT Exam Nose exam: Present sinus tenderness Throat exam: Present other (PND noted) Respiratory Respiratory exam: Present normal lung sounds bilaterally; Absent respiratory distress or wheezes Cardiovascular Cardiovascular exam: Present regular rate, normal rhythm and normal heart sounds Abdominal Exam Abdominal exam: Present soft and normal bowel sounds; Absent distention or tenderness Neurological Exam Neurological exam: Present alert, oriented X3 and normal gait Medical Decision Making Medical Records Screening: Per USPSTF and CDC recommendations, given the prevalence of disease in our region, it is our hospital?s policy to screen for HIV and viral Hepatitis for all patients aged 18 and over and those with ongoing risk factors. Sammy Inquiry Pt receiving controlled substance: No Sammy was queried for this patient: No Vital Signs: 06/28/24 16:10 Temperature 98.4 F Temperature Source Oral Pulse Rate [Left Brachial] 89 Respiratory Rate 19 Blood Pressure [Left Arm] 111/71 Blood Pressure Mean [Left Arm] 84 Blood Pressure Source [Left Arm] Automatic Cuff Blood Pressure Position [Left Arm] Sitting 02 Sat by Pulse Oximetry 99 Oxygen Delivery Method Room Air Lab Data Lab results reviewed: Yes I reviewed the patient's lab results. Lab Results 06/28/24 16:25: Strep Scn Rapid Clinic Negative Orders (Tests/Meds): ORDERS Category Date Time Status Strep Screen Confirmation Stat Micro 06/28/24 16:25 Received
[2024-06-28 16:52] VITALS: BP 111/71; PULSE 89; RESP 19; TEMP 36.9; O2SAT 99
== END 2024-06-28 16:59 | disposition home or self-care (01) ==
PROVIDERS: Emergency Provider Nurse Practitioner; PCP Nurse Practitioner Family
DX: J32.9 Chronic sinusitis, unspecified (principal); R05.9 Cough, unspecified; R09.81 Nasal congestion; R07.89 Other chest pain; R07.0 Pain in throat; Z20.828 Contact with and (suspected) exposure to other viral communicable diseases
CPT/HCPCS: 87880; 99212; G0381

== ENCOUNTER 2024-07-27 09:06 | Emergency (ER) | payer OTHER, SELFPAY ==
[2024-07-27 09:25] VITALS: BP 117/74; PULSE 84; RESP 19; TEMP 36.6; O2SAT 100; BMI 29.5
[2024-07-27 09:34] LABS: Apearance,Urine Clear (Clear); Bilirubin,Urine Negative (Negative); Blood, Urine Negative (Negative); Color,Urine Yellow (Yellow); Glucose,Urine (UA) Negative (Negative); Ketones,Urine Negative (Negative); PH,Urine 5.5 (5.0-8.5); Protein,Urine Negative (Negative); UTC Leukocyte Esterase,Urine Negative (Negative); UTC Nitrate,Urine Negative (Negative); Urobilinogen,Urine 0.2 EU/dl (0.2)
--- NOTE | 2024-07-27 09:38 | EXP.UTC ---
Discharge Plan Disposition Patient Disposition: Home, Self-Care Condition: Good Prescriptions Prescriptions: New ibuprofen 600 mg tablet 600 mg PO Q6HP PRN (Reason: Moderate Pain) Qty: 20 0RF lidocaine 4 % adhesive patch,medicated 1 patch topical DAILY PRN (Reason: pain) Qty: 10 0RF Rx Instructions: apply patch to area leave on for 12 hours then remove for 12 hours No Action Nicotrol 10 mg cartridge See Rx Instructions inhalation QIDP MDD 24mg daily Qty: 168 5RF Rx Instructions: max dose of 6 cart inhaled four time a day as needed; cetirizine 10 mg tablet 10 mg PO DAILY azelastine 137 mcg (0.1 %) spray,non-aerosol 1 spray INTRANASAL DAILY propranolol 20 mg tablet 20 mg PO DAILY Vraylar 6 mg capsule 6 mg PO DAILY Referrals Follow up/Referrals: Kyler Lucia APRN [Primary Care Provider] - See instructions Activity Restrictions/Add. Instructions Additional Instructions/Restrictions: Use Lidocaine patches as prescribed Take Ibuprofen as prescribed Warm soaks in warm water and epson salt may help with pain Follow up witn your Family DOctor if no improvement or any worsening of symtpoms Clinical Impressions Clinical Impression: Low back pain Instructions Patient Instructions: DI for Low Back Pain, Low Back Pain Print Language Print Language: Maltese Discharge ED Provider: Debra Jacome [facility] General Stated complaint: lower back pain Mode of Arrival: Ambulatory Source of Information: Patient Limitations: No Limitations Time Seen by Provider: 07/27/24 09:38 Description of Symptoms (Recalled from Triage Doc. by RN): PATIENT C/O LOWER BACK PAIN FOR APPROX 1 MONTH HEENT Symptoms (Recalled from RN notes): No Resp Symptoms (Recalled from RN notes): No Skin Symptoms (Recalled from RN notes): No MS Symptoms (Recalled from RN notes): Yes Functional Status (Recalled from RN notes): WNL History of Present Illness Provider Complaint: Patient states that she has been having an achy like pain in her right lower back/buttock area on and off for about a month States that it has come and gone but when it acts up it is worse with sitting or laying on her right side and sometimes feels like it goes into her buttock area States today it was bothering her so she came in Related Data Home Medications ?Medication ?Instructions ?Recorded ?Confirmed azelastine 137 mcg (0.1 %) nasal 1 spray intranasal DAILY 07/27/24 07/27/24 spray cariprazine 6 mg capsule (Vraylar) 6 mg PO DAILY 07/27/24 07/27/24 cetirizine 10 mg tablet 10 mg PO DAILY 07/27/24 07/27/24 propranolol 20 mg tablet 20 mg PO DAILY 07/27/24 07/27/24 Previous Rx's ?Medication ?Instructions ?Recorded nicotine 10 mg inhalation See Rx Instructions inhalation 07/22/24 cartridge (Nicotrol) QIDP #168 ea ibuprofen 600 mg tablet 600 mg PO Q6HP PRN Moderate Pain 07/27/24 #20 tabs lidocaine 4 % topical patch 1 patch topical DAILY PRN pain #10 07/27/24 ea Allergies Allergy/AdvReac Type Severity Reaction Status Date / Time Latex, Natural Rubber Allergy Mild Verified 07/22/24 10:39 tramadol Allergy Mild Vomiting Verified 07/22/24 10:39 amoxicillin Allergy Diarrhea Verified 07/22/24 10:39 bacitracin (From Triple Allergy RASH/REDNES Verified 07/22/24 10:39 Antibiotic) S morphine Allergy respiratory Verified 07/22/24 10:39 distress neomycin (From Triple Allergy RASH/REDNES Verified 07/22/24 10:39 Antibiotic) S polymyxin B (From Triple Allergy RASH/REDNES Verified 07/22/24 10:39 Antibiotic) S Worker's Comp Is this a Worker's Comp case?: No [facility] Disclaimer: The information contained in this section may have been updated after the patient was seen, as this information can be updated by other users. Medical History Nipple discharge milky white that seems to be cyclic. She thinks it occurs around ovulation but she hasn't had a period so she doesn't know Anxiety and depression History of COVID-19 History of gastroesophageal reflux (GERD) Request for sterilization Eczema Dyspnea on exertion Asthma Miscarriage History of recurrent miscarriages Bipolar 1 disorder Surgical History H/O laparoscopy H/O bilateral salpingectomy H/O oral surgery H/O tooth extraction History of D&C Family History Family/Other Hyperthyroidism Sister Hypothyroid Graves disease Mother Hypothyroid Mother Diabetes Son Family history of cancer Grandmother Family history of cancer Murmur, heart Social History Smoking Status: Current every day smoker tobacco type: cigarettes packs per day: 1 years smoked: 17 second hand exposure: No alcohol intake: never substance use type: marijuana current occupational status: employed Travel in the last 8 weeks: None ROS Obtained: Yes All systems reviewed & no additional complaints except as documented and Yes Systems reviewed as appropriate & no additional complaints except as documented Constitutional Constitutional: Reports system reviewed and no additional complaints, except as documented and Reports as per HPI ENT Ears, Nose, Mouth, and Throat: Reports system reviewed and no additional complaints, except as documented and Reports as per HPI Cardiovascular Cardiovascular: Reports system reviewed and no additional complaints, except as documented and Reports as per HPI Respiratory Respiratory: Reports system reviewed and no additional complaints, except as documented and Reports as per HPI Gastrointestinal Gastrointestingal: Reports system reviewed and no additional complaints, except as documented and as per HPI Genitourinary Female Genitourinary: Reports system reviewed and no additional complaints, except as documented and Reports as per HPI Musculoskeletal Musculoskeletal: Reports back pain (right low back/buttock pain on and off x 1 mth denies known injury) Physical Exam General General appearance: alert and in no apparent distress Respiratory Respiratory exam: Present normal lung sounds bilaterally; Absent respiratory distress or wheezes Cardiovascular Cardiovascular exam: Present regular rate, normal rhythm and normal heart sounds Abdominal Exam Abdominal exam: Present soft and normal bowel sounds; Absent distention or tenderness Extremities Exam Extremities exam: Present normal inspection and full ROM; Absent tenderness Back Exam Back exam: Present tenderness and sciatic notch tenderness (R) Back 1 view image: 1. reports achy like pain in right lower back worse with sitting or laying on that side, denies loss of control of bowel or bladder, denies numbness states at times does feel like it goes from her lower back into buttock area Denies known injury Neurological Exam Neurological exam: Present alert, oriented X3 and normal gait Medical Decision Making Medical Records Screening: Per USPSTF and CDC recommendations, given the prevalence of disease in our region, it is our hospital?s policy to screen for HIV and viral Hepatitis for all patients aged 18 and over and those with ongoing risk factors. Sammy Inquiry Pt receiving controlled substance: No Sammy was queried for this patient: No Vital Signs: 07/27/24 09:25 Temperature 97.8 F Temperature Source Oral Pulse Rate [Left Brachial] 84 Respiratory Rate 19 Blood Pressure [Left Arm] 117/74 Blood Pressure Mean [Left Arm] 88 Blood Pressure Source [Left Arm] Automatic Cuff Blood Pressure Position [Left Arm] Sitting 02 Sat by Pulse Oximetry 100 Oxygen Delivery Method Room Air Lab Data Lab results reviewed: Yes I reviewed the patient's lab results. Lab Results 07/27/24 09:22: Urine Color Yellow, Urine Appearance Clear, Urine pH 5.5, Ur Specific [place] 1.020, Urine Protein Negative, Urine Glucose (UA) Negative, Urine Ketones Negative, Urine Blood Negative, Urine Nitrate Negative, Urine Bilirubin Negative, Urine Urobilinogen 0.2, Ur Leukocyte Esterase Negative Medical Decision Narrative: Patient reports just had steriod shot a few days ago, will try lidocaine patches
[2024-07-27 09:50] VITALS: BP 117/74; PULSE 84; RESP 19; TEMP 36.6; O2SAT 100
== END 2024-07-27 09:54 | disposition home or self-care (01) ==
PROVIDERS: Emergency Provider Nurse Practitioner; PCP Nurse Practitioner Family
DX: M54.50 Low back pain, unspecified (principal)
CPT/HCPCS: 81003; 99212; G0381

== ENCOUNTER 2024-07-30 10:55 | Outpatient (RCR) | payer OTHER, SELFPAY ==
--- NOTE | 2024-07-30 12:24 | HMH.PTOPEV ---
PT Outpatient Evaluation Rehab PT Outpatient Evaluation Start: 07/30/24 11:00 Freq: Status: Active Protocol: Document 07/30/24 11:00 KECIA (Rec: 07/30/24 12:23 CHEKOKIP [id number]) E-signed By Sherif Pineda, PT Outpatient Therapy Subjective History Subjective History Pt is a 33 yof who presents to [facility] outpatient Physical Therapy with complaints of R sided low back and R buttock pain that began approximately 1 month ago, secondary to a coughing fit. The pt reports that in the past week, it seems like it has gotten slightly better. She reports that her PCP told her that she had a strain of her lower back muscles. She reports that she has been using lidocaine patches and was prescribed a muscle relaxer, both of which have seemed to help. She reports that she currently has the most difficulty with bending, twisting, standing for longer periods, squatting and lifting. She reports a PMH remarkable for asthma and bipolar disorder. New diagnosis of cancer in past 12 No months? Chief Complaint Pain Symptom Type Ache Symptoms Relieved By Ice,Prescription Meds Symptoms Aggravated By Sitting,Standing,Bending/ Stooping,Twisting,Lifting Prior Functional Limitations None Current Functional Limitations Lifting,Housework,Dressing, Driving,Sleeping,Sitting, Squatting,Walking,Stairs, Bending/Stooping Symptom Description Intermittent,Activity Dependent Level of pain today (0-10) 3 Pain scale - at its best (0-10) 0 Pain scale - at its worst (0-10) 9 Lumbopelvic Eval Posture Thoracic Spine Posture Standing Position Neutral Lumbar Spine Posture Standing Position Neutral Assistive device Assistive Devices None / NA Gait Observation General Gait Pattern Observation No Deviations/Normal Palapation tenderness right lumbar spinal tenderness Yes: 3/4 to L5-S1 paraspinal tenderness Yes: 3/4 to L5-S1 Lumbar/Sacral Palpation Findings Tenderness Accessory Movement L5 right S1 right Range of Motion Lumbar Spine Active Flexion Range of 100% Motion (degrees) Lumbar Spine Active Extension Range of 100% Motion (degrees) Left Lumbar Spine Lateral Flexion Active 100% Range of Motion (degrees) Right Lumbar Spine Lateral Flexion 100% Active Range of Motion (degrees) Lumbar Spine ROM Reason Not Measured Within Functional Limits Manual Muscle Test Bilateral Knee Extension Strength Grade 4- Good- Knee Flexion Strength Grade 4- Good- Hip Flexion Strength Grade 3+ Fair+ Hip Abduction Strength Grade 3+ Fair+ Hip Adduction Strength Grade 3+ Fair+ Hip Extension Strength Grade 3+ Fair+ Extensor Hallucis Longus Strength Grade 5 Normal Ankle Dorsiflexion Strength Grade 5 Normal Gastronemius/Soleus Strength Grade 5 Normal DTR Rt Patellar 1+ Lt Patellar 1+ Rt Gastroc/Soleus 1+ Lt Gastroc/Soleus 1+ Altered Sensation Bilateral LE Dermatome Level L1,L2,L3,L4,L5,S1 Comment Intact Sensation Special Tests Lumbar Spine Screen Positive Rib Inspiration/Expiration Breathing Negative Test Forward Bending Test- Standing Negative Left,Negative Right Hip Sitting Root Test Negative Left,Negative Right Hip Scouring (Quadrant) Test Negative Left,Positive Right Hip Micha (GILMA) Test Negative Left,Positive Right Hip Maco Test Negative Left,Negative Right Hip Piriformis Test Negative Left,Negative Right Hip Bowstring (Cram) Test Negative Left,Negative Right Sciatic Nerve Tension Test Negative Left,Negative Right Sacroiliac Joint Compression Test Positive Left,Positive Right Sacroiliac Joint Distraction Test Positive Left,Positive Right Lumbar Long [place] Distraction Test/Manual Negative Traction Oswestry Index Section 1 Pain Intensity The pain comes and goes and is severe Section 2 Personal Care (Washing,Dresing) my way of washing or dressing even though it causes some pain Section 3 Lifting I can lift heavy weights, but it gives me extra pain Section 4 Walking I cannot walk more than one mile wihtout increasing pain Section 5 Sitting Pain prevents me from sitting for more than 1/2 hour Section 6 Standing I have some pain on standing, but it does not increase with time Section 7 Sleeping I get pain in bed, but it does not prevent me from sleeping well Section 8 Social Life Pain has no significant effect on my social life apart from limiting Section 9 Traveling I get extra pain while traveling, but it does not compel me to seek al Section 10 Changing Degreee of Pain My pain is neither getting better or worse Score and Risk Level Oswestry Sc 20 Oswestry Risk Level Moderate Disability Outpatient Therapy Assessment Impairments Problems/Impairmments Palpation Tenderness,Impaired Strength,Impaired Standing, Impaired Sitting,Impaired Household Care,Impaired Squatting,Impaired Work Activities,Subjective C/O Pain Prognosis Rehab Potential Fair Comment w HEP compliance Clinical Impression Consistent with Diagnosis Yes Consistent with LBP with instability Additional details: Pt presents with signs and symptoms consistent with LBP with movement coordination impairments with suggestion of SI instability. The pt would benefit from skilled PT in order to address the above impairments, improve her quality of life and return to her PLOF. Short Term Goals Number of Weeks 4 Decreased Palpation Tenderness Yes: 1-2/4 to Lumbar spine Increase Strength Yes: 4/5 to B hips/knees MMT Increase Ability to Stand Yes: 30 minutes without increasing pain Increase Ability to Sit Yes: 30 minutes without increasing pain Improve Oswestry Score Yes: Mild Disability Decrease Subjective C/O Pain Yes: 11/06 with above Assessment Patient to be Ind w/ HEP Yes Community Organizer Goals Number of Weeks 8 Decreased Palpation Tenderness Yes: 0-1/4 to Lumbar Spine Increase Strength Yes: 4+/5 to B hips/knees MMT Increase Ability to Stand Yes: 1 hour without increasing pain Increase Ability to Sit Yes: 1 hour without increasing pain Improve Tolerance to Work Activities Yes: Daily work activities without increasing pain Improve Oswestry Score Yes: No disability Decrease Subjective C/O Pain Yes: -09/06 with above assessment Patient to be Ind w/ Advanced HEP Yes Outpatient Therapy Plan of Care Treatment Plan May Include Therapeutic Exercise Including Home Yes Exercise Program Manual Therapy Techniques Yes Neuromuscular Re-education Yes Therapeutic Activities to Return to Yes Previous Functional/Work Level Gait Training Yes ADL/Self Care Education Yes Mechanical Traction Yes Dry Needling Yes Thermal Modalities Yes Electrical Stimulation Yes Ultrasound/Phonophoresis Yes Manual Lymphatic Drainage Yes Eval/Re-Eval Yes Frequency Times per week 2 Duration Number of Weeks 8 Addendums This patient is a candidate for social No or vocational rehab? Patient/Guardian verbally acknowledges Yes understanding of treatment program and consents to further treatment? Patient/Guardian verbally acknowledges Yes understanding of diagnosis, prognosis and goals for treatment? Eval Complexity PT Charges 26117 - Moderate Complexity Shoulder/Elbow Eval Shoulder Objective Measurements Elbow Objective Measurements PHYSICIAN CERTIFICATION: I certify the specified therapy services for Loraine Mock are required, authorized, and reviewed every 30 days.
== END 2024-07-30 23:59 | disposition home or self-care (01) ==
LOC: PT 10:55
PROVIDERS: PCP Nurse Practitioner Family; Visit Provider Family Medicine
DX: M54.50 Low back pain, unspecified (principal)
CPT/HCPCS: 97110; 97163; 97530

== ENCOUNTER 2024-08-27 11:00 | Outpatient (RCR) | payer OTHER, SELFPAY | END 2024-08-27 23:59 | disposition home or self-care (01) | LOC: PT 11:00 | PROVIDERS: PCP Nurse Practitioner Family; Visit Provider Family Medicine | DX: M54.50 Low back pain, unspecified (principal) | CPT/HCPCS: 97110; 97530 ==

== ENCOUNTER 2025-01-25 14:32 | Outpatient (CLI) | payer OTHER, SELFPAY ==
--- OUTSIDE RECORDS SUMMARY | 2025-01-25 14:34 | XMS_ITS | Clinical Summary ---
Author Organization Healthcare Address [address] [place] [address] Care Team Providers Care Biodiesel Production Associate Name Role Phone Beto Sweet MD Primary Care Provider [phone] Social History Tobacco Use Types Packs/Day Years Used Date Smoking Tobacco: Never Assessed Alcohol Use Standard Drinks/Week Comments Yes 0 (1 standard drink = 0.6 oz pur e alcohol) Comments Unknown Sex and Gender Information Value Date Recorded Sex Assigned at Not on file Legal Sex Female 6:17 PM EDT Gender Identity Not on file Sexual Orientation Not on file Last Filed Vital Signs Vital Sign Reading Time Taken Comments Blood Pressure - - Pulse - - Temperature - - Respiratory Rate - - Oxygen Saturation - - Inhaled Oxygen Concentration - - Weight 62.6 kg (138 lb 0.1 oz) 01/29/2017 11:53 AM EDT Height 156.2 cm (5' 1.5 ) 01/29/2017 11:53 AM ED T Body Mass Index 25.65 01/29/2017 11:53 AM EDT Plan of Treatment Health Maintenance Due Date Last Done Comments [facility]-Depression Screening 1989 [facility]-/Child/Adol SDOH Screenings 1989 [facility]-Varicella Vaccines (1 of 2 - 13+ 2-dose series) 2002 HPV Vaccines (1 - 3-dose series) 2004 [facility]- SDOH Screenings 10/07/2007 [facility]-Adult SDOH Screenings 10/07/2007 [facility]-DTaP,Tdap,and Td Vaccine s (1 - Tdap) 2008 [facility]-Hepatitis B Vaccines (1 of 3 - 19+ 3-dose series) 2008 [facility]-Pap Smear 2010 [facility]-Cervical Cancer Screening 10/07/2019 [facility]-HPV/Cotest 10/07/2019 [id number] Vaccine (1 - 20 24-25 season) 2024 [facility]-Influenza Vaccine (#1) 2025 [facility]-Zoster Vaccines (1 of 2) 10/07/2039 [facility]-HIB Vaccines Aged Out No longer e ligible based on patient's age to complete this topic [facility]-Hepatitis A Vaccines Aged Out No longer eligible based on patient's age to complete this topic [facility]-IPV Vaccines Aged Out No longer e ligible based on patient's age to complete this topic [facility]-Pneumococcal Vaccine: Pediatrics (0 to 5 Years) and At-Risk Patients (6 to 49 Years) Aged Out No long er eligible based on patient's age to complete this topic [facility]-Rotavirus Vaccines Aged Out No lo nger eligible based on patient's age to complete this topic Insurance MEDICAID Care Teams Biodiesel Production Associate Relationship Specialty Start Date End Date Beto Sweet MD [address] [place] [address] PCP - General 11/10/20
[2025-01-25 15:13] LABS: Hematocrit 42.2 % (37.0-47.0); Hemoglobin 13.9 g/dL (12.2-16.2); Immature Granulocytes % 0.2 %; Mean Corpuscular HGB Conc 32.9 g/dL (31.8-35.4); Mean Corpuscular Hemoglobin 30.7 pg (27.0-31.2); Mean Corpuscular Volume 93.2 fl (81-99); Nucleated Red Blood Cells % 0 %; Platelet Count 196 K/mm3 (142-424); Red Blood Count 4.53 M/mm3 (4.20-5.40); Red Cell Distribution Width-SD 43.6 fL; White Blood Count 8.4 K/mm3 (4.8-10.8)
[2025-01-25 15:46] LABS: Alanine Aminotransferase 18 U/L (12-78); Albumin Level 4.1 g/dl (3.5-5.0); Albumin/Globulin Ratio 2.0 (1.1-1.8); Alkaline Phosphatase 66 U/L (38-126); Anion Gap 9.1 mEq/L (5-15); Aspartate Amino Transferase 22 U/L (14-36); Blood Urea Nitrogen 12 mg/dl (7-17); Calcium 9.3 mg/dl (8.4-10.2); Carbon Dioxide 26 mmol/L (22.0-30.0); Chloride 106 mmol/L (98-107); Cholesterol 171 mg/dl (140-200); Creatinine,Serum 0.80 mg/dl (0.52-1.04); Estimated Glomerular Filt Rate 82 ml/min (>60); GFR (African American) 99 ML/MIN (>60); Globulin 2.1 g/dL (1.3-3.2); Glucose 93 mg/dl (74-100); HDL Cholesterol 46 mg/dl (40-60); Potassium 4.1 mmoL/L (3.5-5.1); Sodium 137 mmol/L (136-145); Total Protein,Serum 6.2 g/dl (6.3-8.2); Triglycerides 119 mg/dl (30-150)
[2025-01-25 15:47] LABS: Bilirubin,Total 0.1 mg/dl (0.2-1.3)
[2025-01-25 16:01] LABS: Free T4 (Free Thyroxine) 0.96 ng/dl (0.78-2.19)
[2025-01-25 16:16] LABS: Thyroid Stimulating Hormone 0.74 uIU/mL (0.465-4.68)
[2025-01-25 16:25] LABS: Hemoglobin A1C 4.9 % (4.0-6.0)
== END 2025-01-25 23:59 | disposition home or self-care (01) ==
LOC: LAB 14:33
PROVIDERS: PCP Nurse Practitioner Family; Visit Provider Nurse Practitioner Family
DX: Z01.89 Encounter for other specified special examinations (principal)
CPT/HCPCS: 36415; 80053; 80061; 80178; 83036; 84439; 84443; 85025

== ENCOUNTER 2025-06-17 07:43 | Outpatient (CLI) | payer OTHER, SELFPAY ==
--- OUTSIDE RECORDS SUMMARY | 2025-06-17 07:46 | XMS_ITS | Clinical Summary ---
Author Organization Healthcare Address [address] [place] [address] Care Team Providers Care Gravedigger Name Role Phone Beto Sweet MD Primary Care Provider [phone] Social History Tobacco Use Types Packs/Day Years [...] of 2 - 13+ 2-dose series) 2002 [facility]- SDOH Screenings 10/07/2007 [facility]-Adult SDOH Screenings 10/07/2007 [facility]-DTaP,Tdap,and Td Vaccine s (1 - Tdap) 2008 [facility]-Hepatitis B Vaccines (1 of 3 - 19+ 3-dose series) 2008 [facility]-Pap Smear 2010 [facility]-Cervical Cancer Screening 10/07/2019 [facility]-HPV/Cotest 10/07/2019 [id number] Vaccine (1 - 20 25-26 season) 2025 [facility]-Influenza Vaccine (#1) 2025 [facility]-Zoster Vaccines (1 of 2) 10/07/2039 HPV Vaccines (No Doses Required) Completed [facility]-HIB Vaccines Aged Out No longer e [...] patient's age to complete this topic Insurance [employer] [facility] MEDICAID Care Teams Gravedigger Relationship Specialty Start Date End Date Beto Sweet MD [facility] [place] [address] PCP - General 11/10/20
[2025-06-17 09:34] LABS: Thyroid Stimulating Hormone 1.85 uIU/mL (0.465-4.68)
[2025-06-18 04:08] LABS: FSH 2.4 mIU/mL (.)
== END 2025-06-17 23:59 | disposition home or self-care (01) ==
LOC: LAB 07:44
PROVIDERS: PCP Nurse Practitioner Family; Visit Provider Obstetrics & Gynecology
DX: N95.1 Menopausal and female climacteric states (principal)
CPT/HCPCS: 36415; 82670; 83001; 84144; 84443

== ENCOUNTER 2025-06-20 15:20 | Outpatient (CLI) | payer OTHER, SELFPAY ==
--- OUTSIDE RECORDS SUMMARY | 2025-06-20 15:22 | XMS_ITS | Clinical Summary ---
Author Organization Healthcare Address [address] [place] [address] Care Team Providers Care Field Sales Consultant Name Role Phone Beto Sweet MD Primary Care Provider [phone] Social History Tobacco Use Types Packs/Day Years [...] 2010 [facility]-Cervical Cancer Screening 10/07/2019 [facility]-HPV/Cotest 10/07/2019 [id number] Vaccine (1 - 20 25-26 season) 2025 [...] age to complete this topic Insurance [employer] [facility] MEDICAID Care Teams Field Sales Consultant Relationship Specialty Start Date End Date Beto Sweet MD [facility] [place] [address] PCP - General 11/10/20
[2025-06-20 16:32] LABS: Free T4 (Free Thyroxine) 0.66 ng/dl (0.78-2.19)
== END 2025-06-20 23:59 | disposition home or self-care (01) ==
LOC: LAB 15:20
PROVIDERS: PCP Nurse Practitioner Family; Visit Provider Obstetrics & Gynecology
DX: Z04.89 Encounter for examination and observation for other specified reasons (principal); Z72.0 Tobacco use
CPT/HCPCS: 36415; 84439